=== PATIENT | female | born 1945 | race Caucasian/White ===

== ENCOUNTER → 2017-10-09 08:30 | Outpatient (CLI) | payer MEDICARE, SELFPAY | PROVIDERS: Family Provider Family Medicine; PCP Family Medicine; Visit Provider Urology | DX: R82.99 Other abnormal findings in urine (principal) | CPT/HCPCS: 87077; 87086; 87088; 87186 ==

== ENCOUNTER → 2017-10-10 12:33 | Outpatient (CLI) | payer MEDICARE, SELFPAY | PROVIDERS: Visit Provider Nurse Practitioner Adult Health | DX: R31.9 Hematuria, unspecified (principal) | CPT/HCPCS: 87077; 87086; 87088; 87186 ==

== ENCOUNTER → 2017-10-22 19:54 | Outpatient (CLI) | payer MEDICARE, SELFPAY | PROVIDERS: Family Provider Family Medicine; PCP Family Medicine; Visit Provider Nurse Practitioner Adult Health | DX: N30.21 Other chronic cystitis with hematuria (principal) | CPT/HCPCS: 87086; 87088 ==

== ENCOUNTER → 2017-11-02 14:17 | Outpatient (CLI) | payer MEDICARE, SELFPAY | LOC: LAB 14:19 → LAB.FUTURE 11-05 12:29 | PROVIDERS: Family Provider Family Medicine; PCP Family Medicine; Visit Provider Urology | DX: N30.21 Other chronic cystitis with hematuria (principal); N39.0 Urinary tract infection, site not specified ==

== ENCOUNTER → 2017-11-05 13:39 | Outpatient (CLI) | payer MEDICARE, SELFPAY | PROVIDERS: Family Provider Family Medicine; PCP Family Medicine; Visit Provider Nurse Practitioner Adult Health | DX: N30.21 Other chronic cystitis with hematuria (principal) | CPT/HCPCS: 87086; 87088 ==

== ENCOUNTER → 2017-11-05 16:33 | Outpatient (CLI) | payer MEDICARE, SELFPAY ==
[2017-11-05 17:06] LABS: Creatinine, Serum 0.78 mg/dL (0.55-1.02); EST Glomerular Filtration Rate 77 mL/min (>60); Est Glom Filt Rate - Afr Amer 93 mL/min (>60)
== END ==
PROVIDERS: Visit Provider Obstetrics & Gynecology
DX: Z79.2 Long term (current) use of antibiotics (principal); N30.21 Other chronic cystitis with hematuria; N39.0 Urinary tract infection, site not specified
CPT/HCPCS: 36415; 82565; 87086; 87088

== ENCOUNTER → 2017-11-06 13:43 | Outpatient (CLI) | payer MEDICARE, SELFPAY ==
[2017-11-06 14:28] VITALS: BP 136/80; PULSE 87; RESP 16; TEMP 37.4; O2SAT 98; BMI 33.5
== END ==
PROVIDERS: Family Provider Family Medicine; PCP Family Medicine; Visit Provider Obstetrics & Gynecology
DX: N76.0 Acute vaginitis (principal); B96.5 Pseudomonas (aeruginosa) (mallei) (pseudomallei) as the cause of diseases classified elsewhere; Z88.1 Allergy status to other antibiotic agents
CPT/HCPCS: 96365; J7050; A4216

== ENCOUNTER → 2017-11-07 13:33 | Outpatient (CLI) | payer MEDICARE, SELFPAY ==
[2017-11-07 13:49] VITALS: BP 145/72; PULSE 92; RESP 16; TEMP 37.3; O2SAT 97
[2017-11-07 14:43] LABS: Gentamicin, Conv. Trough < 0.2 ug/mL (<2.0)
== END ==
PROVIDERS: Family Provider Family Medicine; PCP Family Medicine; Visit Provider Obstetrics & Gynecology
DX: N95.2 Postmenopausal atrophic vaginitis (principal); R10.2 Pelvic and perineal pain
CPT/HCPCS: 96365; 80170; J7050; A4216

== ENCOUNTER → 2017-11-08 13:36 | Outpatient (CLI) | payer MEDICARE, SELFPAY ==
[2017-11-08 13:44] VITALS: BP 129/68; PULSE 86; RESP 16; TEMP 36.8; O2SAT 97; BMI 33.7
== END ==
PROVIDERS: Family Provider Family Medicine; PCP Family Medicine; Visit Provider Obstetrics & Gynecology
DX: N95.2 Postmenopausal atrophic vaginitis (principal); R10.2 Pelvic and perineal pain
CPT/HCPCS: 96365; J7050; A4216

== ENCOUNTER → 2017-11-09 12:55 | Outpatient (CLI) | payer MEDICARE, SELFPAY ==
[2017-11-09 13:10] VITALS: BP 131/65; PULSE 79; RESP 18; TEMP 36.8; O2SAT 98; BMI 33.7
== END ==
PROVIDERS: Family Provider Family Medicine; PCP Family Medicine; Visit Provider Obstetrics & Gynecology
DX: N95.2 Postmenopausal atrophic vaginitis (principal); R10.2 Pelvic and perineal pain
CPT/HCPCS: 96365; J7050; A4216

== ENCOUNTER 2017-11-10 13:19 | Outpatient (CLI) | payer MEDICARE, SELFPAY ==
[2017-11-10 13:39] VITALS: BP 111/52; PULSE 82; RESP 16; O2SAT 99
[2017-11-10] MEDS: 0.9% NaCl Peripheral Flush Adult/Peds IV (13:45)
== END 2017-11-10 14:25 | disposition home or self-care (01) ==
LOC: ICUOUT 13:21 → ICU 13:22
PROVIDERS: Family Provider Family Medicine; PCP Family Medicine; Visit Provider Obstetrics & Gynecology
DX: N95.2 Postmenopausal atrophic vaginitis (principal); R10.2 Pelvic and perineal pain
CPT/HCPCS: 96365; A4216

== ENCOUNTER 2017-11-19 09:28 | Emergency (ER) | payer MEDICARE, SELFPAY ==
[2017-11-19 09:30] VITALS: BP 133/56; PULSE 91; RESP 16; TEMP 36.9; O2SAT 95; BMI 33.9
--- NOTE | 2017-11-19 09:43 | US_ITS ---
STUDY: ULTRASOUND OF THE FEMALE PELVIS - COMPLETE REASON FOR EXAM: Female, 72 years old. Pain LMP: Unknown. TECHNIQUE: Transabdominal, patient refused transvaginal study TECHNICAL QUALITY: Adequate. COMPARISON: None. FINDINGS: The uterus has been removed. Neither ovary visualized. There is no fluid in the cul-de-sac. The pre void volume of the bladder was 566 ml. US/Pelvic (Non ) IMPRESSION: No suspicious sonographic findings, uterus previously removed, neither ovary visualized. Electronically Signed: Kody Pickett MD at 11:43 EDT , Service support ,
[2017-11-19 10:05] LABS: Bacteria 0 SEEN /hpf (None Seen); Mucous, Urine 0 SEEN /hpf (<or=2+); Squamous Epithelial Cells - UA 0 SEEN /hpf (5-10); White Blood Cells 0 SEEN /hpf (0-5)
[2017-11-19] MEDS: Morphine 4 MG/ML Syringe IV (10:10)
[2017-11-19] MEDS: Ondansetron 4 MG/2 ML Vial IV (10:10)
[2017-11-19 10:13] LABS: Color, Urine Straw (Yellow); Glucose, Dipstick Normal (Normal); Ketone-Dipstick Negative (Negative); Leukocyte Esterase-Dipstick Negative /ul (Negative); Nitrite-Dipstick Negative (Negative); Occult Blood-Urine 50 /ul (Negative); Protein-Dipstick Negative (Negative); Urine Bilirubin Dipstick Negative (Negative); Urine Clarity Sl. Cloudy (Clear); Urine Urobilinogen Normal (Normal); Urine pH 6.5 (5.0 - 8.0)
[2017-11-19 10:24] LABS: Red Blood Cells-Urine 0-5 SEEN /hpf (0-5)
[2017-11-19 10:25] LABS: Anion Gap 5 (5-15); BUN 14 mg/dL (7-18); BUN/Creat Ratio 17.2 RATIO (10-20); Calcium,Total 9.4 mg/dL (8.5-10.1); Chloride 103 mmol/L (98-107); Creatinine, Serum 0.82 mg/dL (0.55-1.02); EST Glomerular Filtration Rate 74 mL/min (>60); Est Glom Filt Rate - Afr Amer 89 mL/min (>60); Estimated Creatinine Clearance 55.13 ml/min; Glucose 101 mg/dL (74-106); Sodium Level 136 mmol/L (136-145)
[2017-11-19 10:27] LABS: Absolute Lymphocyte Count 1.85 X10^3/ul (0.83-4.51); Absolute Neutrophil Count 4.9 X10^3/uL (2.0-7.7); Basophil# 0.02 X10^3/uL; Basophil% 0.3 % (0-1); Eosinophil# 0.08 X10^3/uL; Eosinophils% 1.1 % (0-5); Hematocrit 44.7 % (37-47); Hemoglobin 14.8 g/dl (12.0-15.0); Lymphocyte # 1.85 X10^3/ul (4.0); Lymphocyte % 24.8 % (19-41); Mean Corp Hgb Conc 33.1 g/gl (32-36); Mean Corpuscular Hgb 31.2 pg (27.0-32.0); Mean Corpuscular Volume 94.1 fL (81-99); Mean Platelet Vol. 8.8 fl (6.2-12.0); Monocyte% 8.1 % (0-10); Neutrophil # 4.89 X10^3/uL (2.7-7.7); Neutrophil % 65.6 % (47-70); Platelet Count 289 K/mm3 (150-450); RBC Distribution Width CV 13.1 % (11.6-14.6); RBC Distribution Width SD 45.1 fl (35.1-43.9); Red Blood Count 4.75 M/mm3 (4.2-5.4); White Blood Count 7.5 K/mm3 (4.4-11.0)
[2017-11-19 10:28] LABS: POSITIVE COUNT NO; POSITIVE DIFFERENTIAL NO; POSITIVE MORPHOLOGY NO
[2017-11-19 12:03] VITALS: BP 133/67; PULSE 71; RESP 16; O2SAT 98
--- NOTE | 2017-11-19 12:06 | ED.VISSUMM ---
- ER Visit Summary Date of Service: 11/19/17 Chief Complaint: [Lower abdomen/pelvic pain] History of Present Illness: The patient is a 72 F [presents the emergency department with complaint of lower abdomen pelvic pain for about a month. Patient states that she was diagnosed with a pseudomonas infection in her vagina around October 29 and was on gentamicin IV for about 5 days. Patient states that she felt improved after the initial treatment but then the discomfort started to return and she has been very uncomfortable over the last week. Patient denies any vaginal discharge. Patient states her urine has been clear and she has no dysuria, urgency, or frequency. Patient has not had any fever. Patient was seen by Dr. Fam about a week ago for the same complaint. Patient has had prior hysterectomy but still has her ovaries. Patient has had several CAT scans of her abdomen and pelvis for this discomfort and no etiology has been found. Past medical history significant for recurring bladder infections.] Physical Examination: [HEENT-PERRLA, EOMI. Cranial nerves II through XII grossly intact. TMs clear. Mucous membranes moist. No adenopathy. Cardiovascular-regular rate and rhythm without murmur or ectopy Lungs-clear to auscultation, chest wall stable without crepitus or subcu emphysema Abdomen-normoactive bowel sounds, soft. Patient has some mild suprapubic tenderness on palpation. There is no rebound, rigidity, or perineal signs. Pelvic exam-normal external genitalia. Upon inserting the speculum into the vagina patient had significant discomfort and had a difficult time tolerating the exam. No significant drainage noted in the vaginal vault. A vaginal culture was sent and MICAH prep was sent. Extremities-intact ?4, normal range of motion, normal pulses, atraumatic] Test Results: [CBC with differential obtained showed a normal white count and H&H. Chemistries unremarkable. Urinalysis was normal. MICAH prep was negative for fungal elements. I did perform a pelvic ultrasound which did not visualize the ovaries and nothing significant seen on study.] Emergency Department Course and Treatment: [Patient was medicated with morphine and Zofran for her pain. Case will be discussed with Dr. Fam or MARKETING BUDGET ANALYST covering to arrange close follow-up for the patient.] Treatment Plan: [Patient will be given a prescription for [place] for pain.] Disposition: [Discharged home in stable condition.] Impression: [Pelvic pain-etiology uncertain] This note was generated with [employer] dictation software. It may contain incorrect words, spelling, and punctuation that were not noted in review of the chart prior to signing ED Disposition - Plan for ED Patient: Chief Complaint: Female C/O Referrals: Hawk Carbone MD [Primary Care Provider] -
--- NOTE | 2017-11-19 12:09 | ED.DCSUM_ITS ---
- ER Visit Summary Date of Service: 11/19/17 Chief Complaint: [Lower abdomen/pelvic pain] History of Present Illness: The patient is a 72 F [presents the emergency department with complaint of lower abdomen pelvic pain for about a month. Patient states that she was diagnosed with a pseudomonas infection in her vagina around October 29 and was on gentamicin IV for about 5 days. Patient states that she felt improved after the initial treatment but then the discomfort started to return and she has been very uncomfortable over the last week. Patient denies any vaginal discharge. Patient states her urine has been clear and she has no dysuria, urgency, or frequency. Patient has not had any fever. Patient was seen by Dr. Fam about a week ago for the same complaint. Patient has had prior hysterectomy but still has her ovaries. Patient has had several CAT scans of her abdomen and pelvis for this discomfort and no etiology has been found. Past medical history significant for recurring bladder infections.] Physical Examination: [HEENT-PERRLA, EOMI. Cranial nerves II through XII grossly intact. TMs clear. Mucous membranes moist. No adenopathy. Cardiovascular-regular rate and rhythm without murmur or ectopy Lungs-clear to auscultation, chest wall stable without crepitus or subcu emphysema Abdomen-normoactive bowel sounds, soft. Patient has some mild suprapubic tenderness on palpation. There is no rebound, rigidity, or perineal signs. Pelvic exam-normal external genitalia. Upon inserting the speculum into the vagina patient had significant discomfort and had a difficult time tolerating the exam. No significant drainage noted in the vaginal vault. A vaginal culture was sent and MICAH prep was sent. Extremities-intact ?4, normal range of motion, normal pulses, atraumatic] Test Results: [CBC with differential obtained showed a normal white count and H& H. Chemistries unremarkable. Urinalysis was normal. MICAH prep was negative for fungal elements. I did perform a pelvic ultrasound which did not visualize the ovaries and nothing significant seen on study.] Emergency Department Course and Treatment: [Patient was medicated with morphine and Zofran for her pain. Case will be discussed with Dr. Fam or PARACHUTE OFFICER covering to arrange close follow-up for the patient.] Treatment Plan: [Patient will be given a prescription for [place] for pain.] Disposition: [Discharged home in stable condition.] Impression: [Pelvic pain-etiology uncertain] This note was generated with [employer] dictation software. It may contain incorrect words, spelling, and punctuation that were not noted in review of the chart prior to signing ED Disposition - Plan for ED Patient: Chief Complaint: Female C/O Referrals: Hawk Carbone MD [Primary Care Provider] -
--- NOTE | 2017-11-19 12:10 | ED.DEP ---
ED Disposition - Plan for ED Patient: Chief Complaint: Female C/O Instructions: ED Pelvic Pain [facility] Prescriptions: Hydrocodone Bitart/Apap 5-325 [[place] 5/325] 1 - 2 tab PO Q4H PRN PRN 5 Days #20 tab PRN Reason: Pain Referrals: Hawk Carbone MD [Primary Care Provider] - Myke Fam MD [STAFF PHYSICIAN] - Murali Dee MD [STAFF PHYSICIAN] - 3-5 Days
--- NOTE | 2017-11-19 12:14 | DCINST.ED_ITS ---
ED Disposition - Plan for ED Patient: Chief Complaint: Female C/O Instructions: ED Pelvic Pain [facility] Prescriptions: Hydrocodone Bitart/Apap 5-325 [[place] 5/325] 1 - 2 tab PO Q4H PRN PRN 5 Days #20 tab PRN Reason: Pain Referrals: Hawk Carbone MD [Primary Care Provider] - Myke Fam MD [STAFF PHYSICIAN] - Murali Dee MD [STAFF PHYSICIAN] - 3-5 Days
[2017-11-19 12:25] VITALS: BP 153/88; PULSE 74; RESP 14; O2SAT 98
== END 2017-11-19 12:25 | disposition home or self-care (01) ==
PROVIDERS: Emergency Provider Emergency Medicine; Family Provider Family Medicine; PCP Family Medicine
DX: R10.2 Pelvic and perineal pain (principal); Z87.440 Personal history of urinary (tract) infections; Z79.82 Long term (current) use of aspirin; Z79.891 Long term (current) use of opiate analgesic
CPT/HCPCS: 76856; 80048; 81001; 85025; 87070; 87075; 87086; 87088; 87205; 87210; 96374; 96375; 99283; A4216

== ENCOUNTER 2017-11-25 09:53 | Emergency (ER) | payer MEDICARE, SELFPAY ==
[2017-11-25 09:53] VITALS: BP 134/65; PULSE 89; RESP 18; TEMP 37.2; O2SAT 98; BMI 33.7
--- NOTE | 2017-11-25 10:12 | ED.VISSUMM ---
- ER Visit Summary Date of Service: 11/25/17 Chief Complaint: Pelvic pain History of Present Illness: The patient is a 72 F presents the emergency department with complaint of lower abdomen pelvic pain for about a month. She tells me that she was diagnosed with a pseudomonas infection in her vagina earlier in October and that she was on IV gentamicin for [address] Fam.. Patient states that she felt better after the IV antibiotics but then the pain returned. Patient denies any vaginal discharge. Patient states has had no dysuria, but she has burning in her pelvic area when she urinates. No hematuria. Patient has not had any fever. Patient has had prior hysterectomy but still has her ovaries. Patient had a CAT scan as an outpatient as well as an ultrasound in the ER earlier this week without any etiology found. She had a urinalysis done on November 19 that showed no infection. Her culture just showed normal urogenital fernanda. She has had UTIs in the past. Physical Examination: Vital signs reviewed. HEENT exam unremarkable. Heart is regular rate and rhythm without murmurs. Lungs are clear to auscultation. Abdomen is soft with suprapubic tenderness to palpation. Extremities reveal no edema. Skin exam normal. Neurologic exam normal. Test Results: [] Emergency Department Course and Treatment: The patient has a copy of her labs and she is concerned because the culture reveals gram-negative rods as well as gram-positive organisms and the culture. She is afraid that this is Pseudomonas. I informed her that the gram-negative rods could be other organisms not necessarily Pseudomonas. CBC unremarkable. Urinalysis reveals no infection. I have very low suspicion that she does have a recurrence of the Pseudomonas. I will try a B&O suppository to see if this will help with her symptoms. She does have follow-up with urology in 2 days. She will keep this appointment. I will send her home with the suppositories and Dolobid. Treatment Plan: [] Disposition: Discharge Impression: Pelvic pain This note was generated with [employer] dictation software. It may contain incorrect words, spelling, and punctuation that were not noted in review of the chart prior to signing ED Disposition - Plan for ED Patient: Chief Complaint: Abd Pain Referrals: Hawk Carbone MD [Primary Care Provider] -
[2017-11-25 10:21] LABS: Bacteria 0 SEEN /hpf (None Seen); Mucous, Urine 0 SEEN /hpf (<or=2+); Red Blood Cells-Urine 0 SEEN /hpf (0-5)
[2017-11-25 10:23] LABS: Color, Urine Straw (Yellow); Glucose, Dipstick Normal (Normal); Ketone-Dipstick Negative (Negative); Leukocyte Esterase-Dipstick 500 /ul (Negative); Nitrite-Dipstick Negative (Negative); Occult Blood-Urine 50 /ul (Negative); Protein-Dipstick Negative (Negative); Specific Gravity, Urine 1.005 (1.002-1.030); Urine Bilirubin Dipstick Negative (Negative); Urine Clarity Clear (Clear); Urine Urobilinogen Normal (Normal)
[2017-11-25 10:34] LABS: Squamous Epithelial Cells - UA 0-5 SEEN /hpf (5-10); White Blood Cells 0-5 SEEN /hpf (0-5)
[2017-11-25 10:41] LABS: Absolute Neutrophil Count 4.1 X10^3/uL (2.0-7.7); Basophil# 0.02 X10^3/uL; Basophil% 0.3 % (0-1); Eosinophil# 0.12 X10^3/uL; Eosinophils% 1.7 % (0-5); Hematocrit 43.7 % (37-47); Hemoglobin 14.3 g/dl (12.0-15.0); Lymphocyte % 31.9 % (19-41); Mean Corp Hgb Conc 32.7 g/gl (32-36); Mean Corpuscular Hgb 30.6 pg (27.0-32.0); Mean Corpuscular Volume 93.6 fL (81-99); Mean Platelet Vol. 8.8 fl (6.2-12.0); Monocyte# 0.47 X10^3/uL; Monocyte% 6.8 % (0-10); Neutrophil # 4.07 X10^3/uL (2.7-7.7); Neutrophil % 59.2 % (47-70); POSITIVE COUNT NO; POSITIVE DIFFERENTIAL NO; POSITIVE MORPHOLOGY NO; Platelet Count 272 K/mm3 (150-450); RBC Distribution Width CV 13.1 % (11.6-14.6); RBC Distribution Width SD 44.7 fl (35.1-43.9); Red Blood Count 4.67 M/mm3 (4.2-5.4); White Blood Count 6.9 K/mm3 (4.4-11.0)
--- NOTE | 2017-11-25 11:21 | ED.DEP ---
ED Disposition - Plan for ED Patient: Disposition: Home or Assisted Living Chief Complaint: Abd Pain Instructions: ED Pelvic Pain [facility] Referrals: Hawk Carbone MD [Primary Care Provider] -
[2017-11-25 11:55] VITALS: BP 138/72; PULSE 71; RESP 18; O2SAT 98
== END 2017-11-25 12:01 | disposition home or self-care (01) ==
PROVIDERS: Emergency Provider Emergency Medicine; Family Provider Family Medicine; PCP Family Medicine
DX: R10.2 Pelvic and perineal pain (principal); Z87.440 Personal history of urinary (tract) infections; Z79.82 Long term (current) use of aspirin; Z79.2 Long term (current) use of antibiotics
CPT/HCPCS: 36415; 81001; 85025; 99282

== ENCOUNTER → 2017-11-29 18:21 | Outpatient (CLI) | payer MEDICARE, SELFPAY | PROVIDERS: Visit Provider Urology | DX: R31.9 Hematuria, unspecified (principal) | CPT/HCPCS: 87086; 87088 ==

== ENCOUNTER → 2017-12-20 16:09 | Outpatient (CLI) | payer MEDICARE, SELFPAY ==
[2017-12-20 16:47] LABS: Bacteria 0 SEEN /hpf (None Seen); Mucous, Urine 0 SEEN /hpf (<or=2+); Red Blood Cells-Urine 0 SEEN /hpf (0-5)
[2017-12-20 17:08] LABS: Color, Urine Yellow (Yellow); Glucose, Dipstick Normal (Normal); Ketone-Dipstick Negative (Negative); Leukocyte Esterase-Dipstick 25 /ul (Negative); Nitrite-Dipstick Negative (Negative); Occult Blood-Urine 50 /ul (Negative); Protein-Dipstick Negative (Negative); Urine Bilirubin Dipstick Negative (Negative); Urine Clarity Clear (Clear); Urine Urobilinogen Normal (Normal); Urine pH 6.5 (5.0 - 8.0)
[2017-12-20 17:46] LABS: Squamous Epithelial Cells - UA 0-5 SEEN /hpf (5-10); White Blood Cells 0-5 SEEN /hpf (0-5)
== END ==
PROVIDERS: Family Provider Family Medicine; PCP Family Medicine; Visit Provider Obstetrics & Gynecology
DX: N39.0 Urinary tract infection, site not specified (principal)
CPT/HCPCS: 81001; 87086; 87088

== ENCOUNTER 2018-08-03 08:50 | Emergency (ER) | payer MEDICARE, SELFPAY ==
[2018-08-03 08:51] VITALS: BP 119/64; PULSE 91; RESP 16; TEMP 36.5; O2SAT 97; BMI 34.3
[2018-08-03 08:54] VITALS: BP 119/64; PULSE 91; RESP 16; TEMP 36.5; O2SAT 97
--- NOTE | 2018-08-03 09:01 | ED.VISSUMM ---
- ER Visit Summary Date of Service: 08/03/18 Chief Complaint: Dysuria History of Present Illness: The patient is a 73 F dysuria since yesterday. May have noted pus in the urine. No back pain. No fevers. No nausea or vomiting. History of UTIs in the past. However is been a year now. She is followed by urogynecology in [place] Dr. Radhika Fortune for pelvic myalgias Botox injections. Her last treatment was past June. Patient on nighttime daily Macrobid for prevention. History of hysterectomy. Physical Examination: General: Alert and oriented ?3, no acute distress HEENT: Normocephalic, atraumatic. Moist mucosa membranes Neck: supple, nontender. Cardiovascular: Regular rate and rhythm, no murmurs Respiratory: Normal breath sounds, symmetric, no distress Abdomen: Soft, nontender, nondistended Back: No CVA tenderness. Extremities: Nontender, no edema, pulses intact ?4 Neuro: no focal neurological deficits. Test Results: UA: Positive nitrites, leukocytes, WBCs, mild hematuria. Urine culture sent pending Emergency Department Course and Treatment: Patient vitals stable, nontoxic. UA positive for infection. Started on Keflex 7 days, Pyridium. Follow-up as an outpatient. Treatment Plan: [] Disposition: Discharge Impression: 1. UTI with hematuria This note was generated with [employer] dictation software. It may contain incorrect words, spelling, and punctuation that were not noted in review of the chart prior to signing ED Disposition - Plan for ED Patient: Disposition: Home or Assisted Living Chief Complaint: Complaint Diagnosis: UTI (urinary tract infection), Hematuria Instructions: ED UTI Cystitis Female Prescriptions: Cephalexin [Keflex] 500 mg PO Q12 #14 capsule Phenazopyridine HCl [Pyridium] 200 mg PO TID #10 tablet Referrals: Hawk Carbone MD [Primary Care Provider] - Radhika Fortune MD [STAFF PHYSICIAN] - 5-7 Days Additional Instructions: Positive for nitrites, leukocytes, WBCs with mild blood. Urine culture sent and pending
[2018-08-03 09:21] LABS: Mucous, Urine 0 SEEN /hpf (<or=2+)
[2018-08-03 09:25] LABS: Color, Urine Yellow (Yellow); Glucose, Dipstick Normal (Normal); Ketone-Dipstick Negative (Negative); Leukocyte Esterase-Dipstick 500 /ul (Negative); Nitrite-Dipstick Positive (Negative); Occult Blood-Urine 150 /ul (Negative); Protein-Dipstick 15 mg/dl (Negative); Specific Gravity, Urine 1.005 (1.002-1.030); Urine Bilirubin Dipstick Negative (Negative); Urine Clarity Cloudy (Clear); Urine Urobilinogen Normal (Normal)
[2018-08-03 09:35] LABS: White Blood Cells 50-100 SEEN /hpf (0-5)
[2018-08-03 09:36] LABS: Bacteria 3+ /hpf (None Seen); Red Blood Cells-Urine 5-10 SEEN /hpf (0-5); Squamous Epithelial Cells - UA 0-5 SEEN /hpf (5-10)
[2018-08-03 09:51] VITALS: BP 143/84; PULSE 68; RESP 19; O2SAT 95
[2018-08-03 09:59] VITALS: BP 148/76; PULSE 72; RESP 16; O2SAT 95
[2018-08-03] MEDS: Phenazopyridine 95 MG Tablet 190 MG PO (10:07)
[2018-08-03] MEDS: Cephalexin 250 MG Capsule 500 MG PO (10:07)
== END 2018-08-03 10:20 | disposition home or self-care (01) ==
PROVIDERS: Emergency Provider Emergency Medicine; Family Provider Family Medicine; PCP Family Medicine
DX: N39.0 Urinary tract infection, site not specified (principal); R31.9 Hematuria, unspecified; Z87.440 Personal history of urinary (tract) infections
CPT/HCPCS: 81001; 87077; 87086; 87088; 87186; 99283

== ENCOUNTER 2018-10-14 10:34 | Observation (INO) | payer MEDICARE, SELFPAY ==
[2018-10-14] VITALS (8 sets, daily range): BP systolic 137–172; BP diastolic 56–87; PULSE 70–99; RESP 14–17; TEMP 36.3–37.2; O2SAT 96–99; BMI 34.6; BMI 34.4
--- NOTE | 2018-10-14 10:48 | RAD_ITS ---
STUDY: X-RAY CHEST REASON FOR EXAM: Female, 73 years old. Chest pain. TECHNIQUE: Single AP portable view of the chest. COMPARISON: None. FINDINGS: EKG electrodes are seen. Elevation of the right hemidiaphragm. Scattered calcified granulomas. Normal size heart. Normal mediastinum and epi. Normal visualized pulmonary arteries. Normal visualized aortic arch and descending thoracic aorta. Normal visualized thoracic spine. Normal visualized ribs, clavicles, and shoulders. There is no demonstrated abnormality of the visualized soft tissue structures of the upper abdomen. RAD/Chest 1 View (Portable) IMPRESSION: No acute abnormality is seen. Electronically Signed: Aramis Montes, at 11:30 EDT , Service support ,
--- NOTE | 2018-10-14 10:48 | EKG12_ITS ---
Test Reason : CP/PALPS Blood Pressure : / mmHG Vent. Rate : 085 BPM Atrial Rate : 085 BPM P-R Int : 146 ms QRS Dur : 082 ms QT Int : 356 ms P-R-T Axes : 046 -37 001 degrees QTc Int : 423 ms Normal sinus rhythm Left axis deviation Poor R-Wave Progression Abnormal ECG Confirmed by YENNY LUZ, NAIMA ([id number]), assignment desk editor GHAZALA LAIRD ([id number]) on 10/16/2018 1:46:12 PM Referred By: MARISEL Confirmed By:NAIMA RAMON MD
[2018-10-14 11:10] LABS: Absolute Lymphocyte Count 1.94 X10^3/ul (0.83-4.51); Absolute Neutrophil Count 4.5 X10^3/uL (2.0-7.7); Basophil# 0.06 X10^3/uL; Basophil% 0.8 % (0-1); Eosinophil# 0.08 X10^3/uL; Eosinophils% 1.1 % (0-5); Hematocrit 45.6 % (37-47); Hemoglobin 14.5 g/dl (12.0-15.0); Lymphocyte # 1.94 X10^3/ul (4.0); Lymphocyte % 27.1 % (19-41); Mean Corp Hgb Conc 31.8 g/gl (32-36); Mean Corpuscular Volume 94.2 fL (81-99); Mean Platelet Vol. 9.1 fl (6.2-12.0); Monocyte# 0.57 X10^3/uL; Neutrophil % 62.9 % (47-70); Platelet Count 302 K/mm3 (150-450); RBC Distribution Width CV 13.6 % (11.6-14.6); RBC Distribution Width SD 45.3 fl (35.1-43.9); Red Blood Count 4.84 M/mm3 (4.2-5.4); White Blood Count 7.2 K/mm3 (4.4-11.0)
[2018-10-14 11:12] LABS: POSITIVE COUNT NO; POSITIVE DIFFERENTIAL NO; POSITIVE MORPHOLOGY NO
[2018-10-14 11:26] LABS: Anion Gap 2 (5-15); BUN 15 mg/dL (7-18); BUN/Creat Ratio 19.2 RATIO (10-20); Calcium,Total 9.3 mg/dL (8.5-10.1); Chloride 107 mmol/L (98-107); Creatinine, Serum 0.78 mg/dL (0.55-1.02); EST Glomerular Filtration Rate 77 mL/min (>60); Est Glom Filt Rate - Afr Amer 93 mL/min (>60); Estimated Creatinine Clearance 44.56 ml/min; Glucose 106 mg/dL (74-106); Potassium 3.9 mmol/L (3.5-5.1); Sodium Level 138 mmol/L (136-145)
--- NOTE | 2018-10-14 11:40 | ED.VIS.GEN ---
History of Present Illness Chief Complaint: Chest Pain Informant: Patient Narrative: Patient with vague intermittent symptoms of racing heartbeat since around 7 or 8 hours ago this morning intermittently, chest discomfort off and on for a week that is difficult to describe it feels like someone pushing, and mild discomfort in her left upper back that is nonpleuritic and feels like a muscle strain. No leg pain or swelling. No recent travel, immobilization, hospitalization, or surgery. No known history of heart problems. No associated lightheadedness or near syncope/syncope. - Past Medical History (1) Recurrent cystitis Status: Chronic Past Medical History - Allergies and Home Meds Allergies/Adverse Reactions: Allergies chlordiazepoxide [From Librax (with clidinium)] Allergy (Verified 10/14/18 10:36) Unknown ciprofloxacin [From Cipro] Allergy (Verified 10/14/18 10:36) Nausea/Vom/Diarrhea clidinium [From Librax (with clidinium)] Allergy (Verified 10/14/18 10:36) Unknown codeine Allergy (Verified 10/14/18 10:36) Unknown dicyclomine [From Bentyl] Allergy (Verified 10/14/18 10:36) Unknown nickel Allergy (Verified 10/14/18 10:36) Unknown gluten Adverse Reaction (Verified 10/14/18 10:36) Nausea/Vom/Diarrhea levofloxacin [From Levaquin] Adverse Reaction (Verified 10/14/18 10:36) Nausea/Vom/Diarrhea sulfamethoxazole [From Bactrim] Adverse Reaction (Verified 10/14/18 10:36) Nausea/Vom/Diarrhea Primary Care Physician: Hawk Carbone MD [Primary Care Provider] - Lives: Spouse/ Significant Other Smoking Status: Never smoker Review of Systems General: Reports: Malaise. Denies: Chills, Fever, Sweats Eyes: Denies: Visual changes - bilaterally, Diplopia ENT: Denies: Rhinorrhea, Sore throat Cardiovascular: Reports: Chest pain, Heart racing Respiratory: Denies: Dyspnea, Cough Gastrointestinal: Denies: Abdominal pain, Nausea, Vomiting, Diarrhea, Melena, Hematochezia Genitourinary: Denies: Dysuria, Hematuria, Frequency Musculoskeletal: Reports: Back pain. Denies: Swelling, Extremity Pain Skin: Denies: Rash, Wounds Neurological: Denies: Headache, Weakness, Numbness Physical Exam Vital Signs/Narrative: Vital Signs Temp Pulse Resp BP Pulse Ox 10/14/18 11:34 88 17 137/78 H 98 10/14/18 10:36 97.4 F L 99 16 148/56 H 99 Inital Vital Signs reviewed: Yes General: Well nourished, Well developed, No Acute Distress - well-appearing, nad Head: Normocephalic, Atraumatic Eyes: Perrl, EOMI ENT: Moist mucous membranes, No rhinorrhea Neck: Supple, Nontender Cardiovascular: Regular rate, Regular rhythm, No murmurs Respiratory: No distress, CTA bilaterally, Chest nontender Abdomen: Soft, Nontender, Nondistended, Normal bowel sounds Back: Nontender, Normal Inspection Extremities: Nontender, No edema. Negative for: Calf Tenderness Skin: Normal color, No rash, No Trauma Neurological: Alert, Oriented x3, Cranial nerves II-XII grossly intact, Normal Strength, Normal Sensation Psychological: Normal affect, Normal Mood Diagnostic/Tx/Re-eval Impressions Chest X-Ray 10/14/18 10:48 IMPRESSION: No acute abnormality is seen. Electronically Signed: Aramis Montes, at 11:30 EDT , Service support , Chest CTA 10/14/18 12:25 IMPRESSION: Pulmonary emboli in the left upper lobe pulmonary arterial branches. Findings suggestive of interstitial scarring at the lung bases. Left renal cyst. Electronically Signed: Aramis Montes, at 13:48 EDT , Service support , 10/14/18 10:48 Chest 1 View (Portable) [RAD] Stat 10/14/18 12:25 CTA Chest W/WO Contrast [CT] Stat Laboratory Results 10/14/18 10/14/18 10/14/18 10:58 10:58 10:58 WBC 7.2 RBC 4.84 Hgb 14.5 Hct 45.6 MCV 94.2 MCH 30.0 MCHC 31.8 L RDW 13.6 RDW Differential 45.3 H Plt Count 302 MPV 9.1 Immature Gran % (Auto) 0.100 Neut % (Auto) 62.9 Lymph % (Auto) 27.1 [place] % (Auto) 8.0 Eos % (Auto) 1.1 Baso % (Auto) 0.8 Absolute Neuts (auto) 4.5 Absolute Lymphs (auto) 1.94 Total Counted Not Reportable D-Dimer Quant (PE/DVT) 2.34 H* Sodium 138 Potassium 3.9 Chloride 107 Carbon Dioxide 29.0 Anion Gap 2 L BUN 15 Creatinine 0.78 Estim Creat Clear Calc 44.56 Est GFR (MDRD) Af Amer 93 Est GFR (MDRD) Non-Af 77 BUN/Creatinine Ratio 19.2 Glucose 106 Calcium 9.3 Troponin I < 0.015 - Rhythm Strip Rhythm Strip: Sinus Rhythm Rate: 85 Ectopy: None - EKG Initial EKG Interpretation: Sinus Rhythm, No Acute Injury Pattern, - - left axis Prior: Unchanged - Medical Decision Making Patient is remained hemodynamically stable, she has had no recurrence of her palpitations or racing heartbeat, however she has been resting in bed the entire time to. She came in and her heart rate was 99, it has not gone higher than that. CT shows pulmonary emboli in the left upper lobe, which is probably related to her left upper back pain. However, she is also having some central chest discomfort that sounds different. Her blood pressure has remained stable and is actually high. Lovenox ordered, I have discussed with hospitalist to evaluate for possible admission. ED Disposition - Plan for ED Patient: Disposition: Acute Care Hospital [facility] Diagnosis: Chest pain, unspecified, Pulmonary embolism, Palpitations Referrals: Hawk Carbone MD [Primary Care Provider] -
[2018-10-14 11:44] LABS: D-Dimer Quantitative (DVT/PE) 2.34 FEU/ug/m (0.27-0.49)
--- NOTE | 2018-10-14 11:44 | ED.DCSUM_ITS ---
History of Present Illness Chief Complaint: Chest Pain Informant: Patient Narrative: Patient with vague intermittent symptoms of racing heartbeat since around 7 or 8 hours ago this morning intermittently, chest discomfort off and on for a week that is difficult to describe it feels like someone pushing, and mild discomfort in her left upper back that is nonpleuritic and feels like a muscle strain. No leg pain or swelling. No recent travel, immobilization, hospitalization, or surgery. No known history of heart problems. No associated lightheadedness or near syncope/syncope. - Past Medical History (1) Recurrent cystitis Status: Chronic Past Medical History - Allergies and Home Meds Allergies/Adverse Reactions: Allergies chlordiazepoxide [From Librax (with clidinium)] Allergy (Verified 10/14/18 10:36) Unknown ciprofloxacin [From Cipro] Allergy (Verified 10/14/18 10:36) Nausea/Vom/Diarrhea clidinium [From Librax (with clidinium)] Allergy (Verified 10/14/18 10:36) Unknown codeine Allergy (Verified 10/14/18 10:36) Unknown dicyclomine [From Bentyl] Allergy (Verified 10/14/18 10:36) Unknown nickel Allergy (Verified 10/14/18 10:36) Unknown gluten Adverse Reaction (Verified 10/14/18 10:36) Nausea/Vom/Diarrhea levofloxacin [From Levaquin] Adverse Reaction (Verified 10/14/18 10:36) Nausea/Vom/Diarrhea sulfamethoxazole [From Bactrim] Adverse Reaction (Verified 10/14/18 10:36) Nausea/Vom/Diarrhea Primary Care Physician: Hawk Carbone MD [Primary Care Provider] - Lives: Spouse/ Significant Other Smoking Status: Never smoker Review of Systems General: Reports: Malaise. Denies: Chills, Fever, Sweats Eyes: Denies: Visual changes - bilaterally, Diplopia ENT: Denies: Rhinorrhea, Sore throat Cardiovascular: Reports: Chest pain, Heart racing Respiratory: Denies: Dyspnea, Cough Gastrointestinal: Denies: Abdominal pain, Nausea, Vomiting, Diarrhea, Melena, Hematochezia Genitourinary: Denies: Dysuria, Hematuria, Frequency Musculoskeletal: Reports: Back pain. Denies: Swelling, Extremity Pain Skin: Denies: Rash, Wounds Neurological: Denies: Headache, Weakness, Numbness Physical Exam Vital Signs/Narrative: Vital Signs Temp Pulse Resp BP Pulse Ox 10/14/18 11:34 88 17 137/78 H 98 10/14/18 10:36 97.4 F L 99 16 148/56 H 99 Inital Vital Signs reviewed: Yes General: Well nourished, Well developed, No Acute Distress - well-appearing, nad Head: Normocephalic, Atraumatic Eyes: Perrl, EOMI ENT: Moist mucous membranes, No rhinorrhea Neck: Supple, Nontender Cardiovascular: Regular rate, Regular rhythm, No murmurs Respiratory: No distress, CTA bilaterally, Chest nontender Abdomen: Soft, Nontender, Nondistended, Normal bowel sounds Back: Nontender, Normal Inspection Extremities: Nontender, No edema. Negative for: Calf Tenderness Skin: Normal color, No rash, No Trauma Neurological: Alert, Oriented x3, Cranial nerves II-XII grossly intact, Normal Strength, Normal Sensation Psychological: Normal affect, Normal Mood Diagnostic/Tx/Re-eval Impressions Chest X-Ray 10/14/18 10:48 IMPRESSION: No acute abnormality is seen. Electronically Signed: Aramis Montes, at 11:30 EDT , Service support , Chest CTA 10/14/18 12:25 IMPRESSION: Pulmonary emboli in the left upper lobe pulmonary arterial branches. Findings suggestive of interstitial scarring at the lung bases. Left renal cyst. Electronically Signed: Aramis Montes, at 13:48 EDT , Service support , 10/14/18 10:48 Chest 1 View (Portable) [RAD] Stat 10/14/18 12:25 CTA Chest W/WO Contrast [CT] Stat Laboratory Results 10/14/18 10/14/18 10/14/18 10:58 10:58 10:58 WBC 7.2 RBC 4.84 Hgb 14.5 Hct 45.6 MCV 94.2 MCH 30.0 MCHC 31.8 L RDW 13.6 RDW Differential 45.3 H Plt Count 302 MPV 9.1 Immature Gran % (Auto) 0.100 Neut % (Auto) 62.9 Lymph % (Auto) 27.1 [place] % (Auto) 8.0 Eos % (Auto) 1.1 Baso % (Auto) 0.8 Absolute Neuts (auto) 4.5 Absolute Lymphs (auto) 1.94 Total Counted Not Reportable D-Dimer Quant (PE/DVT) 2.34 H* Sodium 138 Potassium 3.9 Chloride 107 Carbon Dioxide 29.0 Anion Gap 2 L BUN 15 Creatinine 0.78 Estim Creat Clear Calc 44.56 Est GFR (MDRD) Af Amer 93 Est GFR (MDRD) Non-Af 77 BUN/Creatinine Ratio 19.2 Glucose 106 Calcium 9.3 Troponin I < 0.015 - Rhythm Strip Rhythm Strip: Sinus Rhythm Rate: 85 Ectopy: None - EKG Initial EKG Interpretation: Sinus Rhythm, No Acute Injury Pattern, - - left axis Prior: Unchanged - Medical Decision Making Patient is remained hemodynamically stable, she has had no recurrence of her palpitations or racing heartbeat, however she has been resting in bed the entire time to. She came in and her heart rate was 99, it has not gone higher than that. CT shows pulmonary emboli in the left upper lobe, which is probably related to her left upper back pain. However, she is also having some central chest discomfort that sounds different. Her blood pressure has remained stable and is actually high. Lovenox ordered, I have discussed with hospitalist to evaluate for possible admission. ED Disposition - Plan for ED Patient: Disposition: Acute Care Hospital [facility] Diagnosis: Chest pain, unspecified, Pulmonary embolism, Palpitations Referrals: Hawk Carbone MD [Primary Care Provider] -
--- NOTE | 2018-10-14 11:45 | ED.RN ---
LAB CALL WITH CRITICAL VALUE D-DIMER 2.34. VERBALLY REPORTED TO DR. ORTEGA AND DOREEN GOODSON.
--- NOTE | 2018-10-14 12:25 | CT_ITS ---
STUDY: CTA CHEST REASON FOR EXAM: Female, 73 years old. Chest pain and back pain. Palpitations. Elevated d-dimer levels. RADIATION DOSAGE (If Supplied By Facility): CTDIvol = ( 11.55 ) mGy, DLP = ( 477.23 ) mGycm TECHNIQUE: The examination was performed with the intravenous administration of Isovue 370 100 IV. Post-processing of the angiographic images was performed, with multiplanar reformation and 3D reconstruction. Individualized dose optimization techniques were used for this CT. COMPARISON: None. FINDINGS: Small bilateral axillary lymph nodes. Nonocclusive intraluminal filling defects are seen in the left upper lobe pulmonary arterial branches in keeping with pulmonary emboli. Normal thoracic aorta and visualized great vessels. There is no demonstrated aortic dissection. Normal heart and pericardium. Normal mediastinum. Normal hilar regions. Normal visualized trachea and bronchi. The lungs are well expanded. Increased interstitial markings with areas of confluence and cystic changes in the lower lobes in keeping with a chronic interstitial fibrosis. Normal pleura. Normal chest wall structures. There are degenerative changes of thoracic spine. There is a 3.2 cm x 7.3 cm lobulated cyst in the mid upper aspect of the left kidney. CT/CTA Chest W/WO Contrast IMPRESSION: Pulmonary emboli in the left upper lobe pulmonary arterial branches. Findings suggestive of interstitial scarring at the lung bases. Left renal cyst. Electronically Signed: Aramis Montes, at 13:48 EDT , Service support ,
[2018-10-14] MEDS: Mag Hydrox/Al Hydrox/Simeth 30 ML UDC PO (12:26)
[2018-10-14] MEDS: Enoxaparin 100 MG/ML Syringe 90 MG SC (14:49)
--- NOTE | 2018-10-14 15:10 | CASEMGMT ---
RN CM Assessment Introduced role of RN CM to patient and Jun at bedside.? Patient is alert, oriented and able?to participate in RN CM Assessment. ?Care providers, pharmacy, and demographics verified. Presentation: CP Admit Dx: PE Re-Admit: No Barriers/Issues: None PCP: Hawk Carbone Specialists: Uro/Infusion Nurse- Dr Fortune in [place], Uro- Dr Dee Preferred Pharmacy: [facility] Insurance: [facility] Benefit: ?Yes ?LNOK: Jun Fair LW/HPOA: Yes Both, HPOA Jun Fair. Not on file at [facility]. Living Arrangements:? Lives with in a SS Home, no steps to enter. ADL?s: Independent with ambulation and ADL's Transportation: Patient drives, DC with Jun DME: None HHC: None SNF: None Goal: Home DC PLAN: Home with no anticipated needs identified. Marianna Bennett RNCM
--- NOTE | 2018-10-14 15:23 | PCM.HP.STD ---
Problem List (1) Pulmonary embolism Status: Acute (2) Recurrent cystitis Status: Chronic History of Present Illness Date of Admission: 10/14/18 Chief Complaint: racing heart The patient is a 73 year old F with pmhx of frequent UTIs who presented to the ER with c/o heart racing and intermittent chest discomfort radiating in to the back. She is not SOB. D dimer was elevated in the ER. CTA was obtained which demonstrated pulmonary emboli in the GEOFF. In the ER she is comfortable in bed NAD. She neither hypoxic nor tachycardic. She has no CP. She is anxious. She has not had a blood clot in the past. No LE edema. She has no family hx of blood clots. No recent long travel, injury, or surgery. No hormone use. [] Past Medical History Past Medical History (Chronic Problems): Chronic Problems Recurrent cystitis (Chronic) Allergies chlordiazepoxide [From Librax (with clidinium)] Allergy (Verified 10/14/18 10:36) Unknown ciprofloxacin [From Cipro] Allergy (Verified 10/14/18 10:36) Nausea/Vom/Diarrhea clidinium [From Librax (with clidinium)] Allergy (Verified 10/14/18 10:36) Unknown codeine Allergy (Verified 10/14/18 10:36) Unknown dicyclomine [From Bentyl] Allergy (Verified 10/14/18 10:36) Unknown nickel Allergy (Verified 10/14/18 10:36) Unknown gluten Adverse Reaction (Verified 10/14/18 10:36) Nausea/Vom/Diarrhea levofloxacin [From Levaquin] Adverse Reaction (Verified 10/14/18 10:36) Nausea/Vom/Diarrhea sulfamethoxazole [From Bactrim] Adverse Reaction (Verified 10/14/18 10:36) Nausea/Vom/Diarrhea Home Medications: Ambulatory Orders Medication Instructions Recorded Aspirin 81 mg PO DAILY 06/07/16 Nitrofurantoin Macrocrystal 50 mg PO DAILY 06/07/16 [Macrodantin] Cholecalciferol (Vitamin D3) 2,000 unit PO DAILY 10/14/18 [Vitamin D3] Cranberry Conc/C/Bacill Coag 1 each PO DAILY 10/14/18 [Cranberry Tablet] Phenazopyridine HCl [Pyridium] 200 mg PO TID PRN 10/14/18 Surgical History: hysterectomy, - - bunion x2 Psychiatric History: No pertinent psych hx 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 Lives: Spouse/ Significant Other Smoking Status: Never smoker Tobacco Use: Non-smoker Alcohol: None Drugs: None - *Family History Maternal History Items: Heart Disease - CHF Paternal History Items: No pertinent history Review of Systems Constitutional: Denies: Chills, Fever, Weight Change HEENT: Denies: Head Aches, Sinus Congestion, Sinus Drainage Cardiovascular: Reports: Chest Pain, Palpitations Respiratory: Denies: Cough, Shortness of breath at rest, Sputum production Gastrointestinal: Denies: Abdominal Pain, Nausea, Vomiting Genitourinary: Denies: Dysuria Musculoskeletal: Denies: Joint Pain, Joint Tenderness Skin: Denies: Rash, Wounds Neurological: Denies: Numbness, Tingling, Focal weakness Psychiatric: Denies: Anxiety, Depression, Homicidal Ideations, Suicidal Ideations Hematologic/ Lymphatic: Denies: Easy Bruising, Easy Bleeding VTE Information - Inpt Only VTE Present on Admission: Yes VTE Mechan Device Prophylaxis: None VTE Pharm Prophylaxis ordered?: Yes Patient Problems: Active and Suspected Problems Chest pain, unspecified (Acute) Pulmonary embolism (Acute) Palpitations (Acute) - Physical Exam General: Alert, Oriented x3, Cooperative HEENT: Atraumatic, PERRLA, EOMI, Normocephalic Neck: Supple, No JVD, Negative Carotid Bruits Lungs: Clear to auscultation, Normal air movement Cardiovascular: Regular rate, No murmurs Abdomen: Bowel Sounds Present, Soft, Non Tender Extremities: No edema, Capillary Refill Less than 3 Seconds Skin: No rashes, No breakdown Musculoskeletal: No Tenderness to Palpation of Joints or Extremities Neurological: Cranial nerves II-XII grossly intact Psych/Mental Status: Normal Affect, Appropriate, Alert and oriented to time, place, person, mood and affect Vital Signs Temp Pulse Resp BP Pulse Ox 97.4 F L 87 17 172/79 H 98 10/14/18 10:36 10/14/18 14:36 10/14/18 14:36 10/14/18 14:36 10/14/18 14:36 Oxygen Delivery Method Room Air Weight: 201 lb 11.567 oz Body Mass Index (BMI) 34.6 Laboratory Tests Past 24 Hrs 10/14/18 10/14/18 10/14/18 10:58 10:58 10:58 WBC 7.2 RBC 4.84 Hgb 14.5 Hct 45.6 MCV 94.2 MCH 30.0 MCHC 31.8 L RDW 13.6 RDW Differential 45.3 H Plt Count 302 MPV 9.1 Immature Gran % (Auto) 0.100 Neut % (Auto) 62.9 Lymph % (Auto) 27.1 [place] % (Auto) 8.0 Eos % (Auto) 1.1 Baso % (Auto) 0.8 Absolute Neuts (auto) 4.5 Absolute Lymphs (auto) 1.94 Total Counted Not Reportable D-Dimer Quant (PE/DVT) 2.34 H* Sodium 138 Potassium 3.9 Chloride 107 Carbon Dioxide 29.0 Anion Gap 2 L BUN 15 Creatinine 0.78 Estim Creat Clear Calc 44.56 Est GFR (MDRD) Af Amer 93 Est GFR (MDRD) Non-Af 77 BUN/Creatinine Ratio 19.2 Glucose 106 Calcium 9.3 Troponin I < 0.015 Assessment/Plan All Active Problems Chest pain, unspecified (Acute) Pulmonary embolism (Acute) Palpitations (Acute) 1. Acute GEOFF pulmonary emboli - recieved lovenox in er. Start xarelto. No hypoxia/tachycardia/hypotension. Stable. Obs to PCU on tele. Stop home aspirin (she does not take this for anything specific. 2. Hx frequent UTIs - on prophylactic macrobid DVT ppx: lovenox --> xarelto DC planning: home in am if stable This patient was seen by Omid Al PA-C under the supervision of Doctor Najma.
--- NOTE | 2018-10-14 16:17 | VDLE_ITS ---
Reason For Study: PE RIGHT LEFT GSV is normal. GSV is normal. CFV is compressible, spontaneous, phasic, CFV is compressible, spontaneous, phasic, competent and demonstrates normal competent, and demonstrates normal augmentation. augmentation. FV is compressible, spontaneous, phasic, FV is compressible, spontaneous, phasic, competent and demonstrates normal competent and demonstrates normal augmentation. augmentation. POP V is compressible, spontaneous, phasic, POP V is compressible, spontaneous, phasic, competent and demonstrates normal competent and demonstrates normal augmentation. augmentation. T/P Trunk is compressible. T/P Trunk is compressible. PTV is compressible. PTV is compressible. RT PerV is compressible. LT PerV is compressible. Procedure Exam performed portable in patient room. The exam was diagnostic. A preliminary report was called and/or faxed to Carol LOGAN. Interpretation Summary No evidence for acute deep venous thrombosis bilateral lower extremities with patent and compressible bilateral great saphenous veins. Ordering Physician: Juanito Yao Performed By: Toney Martínez RVT
--- NOTE | 2018-10-14 16:39 | CHAPLAIN ---
Type of Pastoral Visit _x__ Initial Visit ___ Follow-up Visit ___ On-call Visit ___ General Patient Visit ___ Spiritual Assessment ___ Family Conference ___ Bereavement ___ Rapid Response ___ Code Blue ___ Other (describe below) Pastoral Care Referral From _x__ Patient ___ Family ___ Nurse ___ Physician ___ Principal Associate ___ Produce Laborer ___ Other (describe below) Sacrament/Intervention _x__ Active listening ___ Anointing ___ Pentecostalism ___ Bereavement ___ Communion ___ Eboni exploration ___ ___ Life review _x__ Prayer ___ Reconciliation ___ Sacrament of Sick _x__ Supportive presence ___ Wedding ___ Other (describe below) Pastoral Comments
[2018-10-14] MEDS: Acetaminophen 325 MG Tablet 650 MG PO ×2 (16:50→18:11)
[2018-10-14] MEDS: Rivaroxaban 15 MG Tablet PO (18:05)
[2018-10-15] VITALS (8 sets, daily range): BP systolic 114–149; BP diastolic 54–84; PULSE 73–104; RESP 11–16; TEMP 36.4–36.8; O2SAT 94–99
[2018-10-15] MEDS: Acetaminophen 325 MG Tablet 650 MG PO (05:39)
--- NOTE | 2018-10-15 07:02 | ECHOD_ITS ---
Reason For Study: EMBOLI Procedure This was a 2D Doppler, Color Flow transthoracic echocardiogram. The exam was of adequate technical quality. Exam performed portable in patient room. Left Ventricle Normal LV size. Left ventricular systolic function is normal. The estimated ejection fraction is 65 %. Diastolic function is indeterminate. No regional wall motion abnormalities noted. Right Ventricle Normal RV size. Normal systolic function. Atria The left atrium is mildly enlarged. Normal right atrium. No doppler evidence for ASD. Mitral Valve There is no mitral annular calcification. Normal mitral valve. Trivial mitral valve insufficiency. Tricuspid Valve Normal tricuspid valve. Trivial tricuspid valve insufficiency. Right ventricular systolic pressure estimated to be 29 mmHg. Aortic Valve Trisinus/trileaflet aortic valve. Normal aortic valve. Pulmonic Valve The pulmonic valve is not well visualized. Mild (1+) pulmonic valve insufficiency. Great Vessels Normal sized aortic root. Pericardium/Pleural No pericardial effusion. MMode/2D Measurements & Calculations LVIDd: 4.5 cm IVSd: 0.86 cm Ao root diam: 2.9 cm LVIDs: 2.6 cm LVPWd: 1.1 cm RVDd: 3.4 cm FS: 41.6 % LAV(MOD-bp): 41.8 ml LA A4 area: 16.8 cm2 LA dimension(2D): 3.5 cm LAV(MOD-bp) Indexed: 21.4 ml/m2 LAV(MOD-sp2): 33.4 ml LAV(MOD-sp4): 42.1 ml RA A4 area: 12.9 cm2 Time Measurements MV dec time: 0.19 sec Doppler Measurements & Calculations MV E max gildardo: 90.2 cm/sec Lat Peak E' Gildardo: 8.6 cm/sec Med Peak E' Gildardo: 6.5 cm/sec MV A max gildardo: 118.7 cm/sec E/E' lat: 10.4 E/E' med: 13.8 MV E/A: 0.76 Ao V2 max: 211.6 cm/sec LV V1 max: 186.3 cm/sec PA V2 max: 116.3 cm/sec Ao max P.9 mmHg LV V1 max P.9 mmHg PI end-d gildardo: 127.3 cm/sec TR max gildardo: 252.8 cm/sec TR max P.6 mmHg Interpretation Summary Left ventricular systolic function is normal. The estimated ejection fraction is 65 %. The left atrium is mildly enlarged. Trivial mitral valve insufficiency. Trivial tricuspid valve insufficiency. Mild (1+) pulmonic valve insufficiency. Right ventricular systolic pressure estimated to be 29 mmHg. Diastolic function is indeterminate. Ordering Physician: Neha Flores Referring Physician: YAN ZHU Performed By: Nita Benites, AAYUSH, RVT
[2018-10-15] MEDS: Rivaroxaban 15 MG Tablet PO (09:08)
[2018-10-15] MEDS: Acetaminophen/Butalbital/Caffe 1 Tablet PO (10:11)
--- NOTE | 2018-10-15 10:35 | CASEMGMT ---
Per Thom ESPOSITO, pt has concerns about Xarelto co-pay. Apparently, Dr. Yao called Xarelto in for pt last pm and he states he was told that pt's co-pay would be $30 at that time. Call to [facility] and per tech, pt's co-pay is $269 at this time and tech states that that is mostly deductible at this time. Pt provided with Xarelto 30 day free trial card at this time and instruction on use, voices understanding. Pt states that her placed call to [facility] and they states that subsequent Xarelto scripts will be $30. Pt voices no further questions/concerns/needs at this time. Kayla LOGAN CM
--- NOTE | 2018-10-15 11:46 | DCINST_ITS ---
- Discharge Diagnoses Current Active Problems: Current Active and Chronic Problems Chest pain, unspecified (Acute) Pulmonary embolism (Acute) Palpitations (Acute) You will use the following diet at home:: No restrictions Your food should be the consistency of: Regular Your liquids should be the consistency of: Regular/Thin Discharge Activity: Return to Normal Activity Allergies/Adverse Reactions: Allergies chlordiazepoxide [From Librax (with clidinium)] Allergy (Verified 10/14/18 10:36) Unknown ciprofloxacin [From Cipro] Allergy (Verified 10/14/18 10:36) Nausea/Vom/Diarrhea clidinium [From Librax (with clidinium)] Allergy (Verified 10/14/18 10:36) Unknown codeine Allergy (Verified 10/14/18 10:36) Unknown dicyclomine [From Bentyl] Allergy (Verified 10/14/18 10:36) Unknown nickel Allergy (Verified 10/14/18 10:36) Unknown gluten Adverse Reaction (Verified 10/14/18 10:36) Nausea/Vom/Diarrhea levofloxacin [From Levaquin] Adverse Reaction (Verified 10/14/18 10:36) Nausea/Vom/Diarrhea sulfamethoxazole [From Bactrim] Adverse Reaction (Verified 10/14/18 10:36) Nausea/Vom/Diarrhea Medications to take at Discharge Nitrofurantoin Macrocrystal [Macrodantin] 50 mg PO DAILY 06/07/16 Cholecalciferol (Vitamin D3) [Vitamin D3] 2,000 unit PO DAILY 10/14/18 Cranberry Conc/C/Bacill Coag [Cranberry Tablet] 1 each PO DAILY 10/14/18 Phenazopyridine HCl [Pyridium] 200 mg PO TID PRN 10/14/18 Rivaroxaban [Xarelto] 15 mg PO BIDCM tablet 10/15/18 Primary Care Physician: Hawk Carbone MD [Primary Care Provider] - Please follow up with your Primary Care Physician in: 1-2 weeks Test Results: Test results from this visit will be discussed in further detail at your follow- up appointment, if applicable. Proposed Discharge Date: 10/15/18
--- NOTE | 2018-10-15 12:22 | PHA.DC.MC ---
Pharmacy Service has performed discharge medication reconciliation and counseling for this patient. The patient's discharge medication list was reviewed for discrepancies and discrepancies were resolved. The patient was counseled on the following discharge medications and changes in medications for homegoing were reviewed. XARELTO The Reason for Use, instructions for use, and potential side effects were reviewed for all new medications. The patient's questions regarding all of their medications were answered. The patient was able to verbally demonstrate an understanding of their discharge medications. Home Medications Nitrofurantoin Macrocrystal [Macrodantin] 50 mg PO DAILY 06/07/16 Cholecalciferol (Vitamin D3) [Vitamin D3] 2,000 unit PO DAILY 10/14/18 Cranberry Conc/C/Bacill Coag [Cranberry Tablet] 1 each PO DAILY 10/14/18 Phenazopyridine HCl [Pyridium] 200 mg PO TID PRN 10/14/18 Rivaroxaban [Xarelto] 15 mg PO BIDCM tablet 10/15/18
--- NOTE | 2018-10-15 14:38 | PCM.DC.SUM ---
Discharge Date and Diagnosis - Problem List Patient Problems: Active and Suspected Problems Chest pain, unspecified (Acute) Pulmonary embolism (Acute) Palpitations (Acute) Date of Admission: 10/14/18 Date of Discharge: 10/15/18 - Primary Discharge Diagnosis Active and Suspected Problems Pulmonary emboli GEOFF anxiety hx of multiple bladder infections Left renal cyst - Secondary Discharge Diagnosis Chronic Problems Recurrent cystitis (Chronic) Hospital Course and Treatment Imaging Results: 10/15/18 07:02 Echo Complete [ECHO] Routine Final report pending CT/CTA Chest W/WO Contrast IMPRESSION: Pulmonary emboli in the left upper lobe pulmonary arterial branches. Findings suggestive of interstitial scarring at the lung bases. Left renal cyst. Operations: None Procedures: 2-D Echocardiogram Summary of Care Provided: Hospital course: The patient is a 73 year old F with past medical history of anxiety and multiple bladder infections who presents to the emergency room with chest pain. She was found to have an elevated d-dimer so a CTA of the chest was obtained. This revealed left upper lobe pulmonary emboli. She did have some tachycardia and was admitted to the PCU on telemetry for PE. She had no history of trauma, no recent travel, no family or personal history of blood clots, not on hormone therapy, and she does not smoke. She was given a dose of therapeutic Lovenox in the ER and then started on Xarelto. She did well overnight with no further issues. An echocardiogram was obtained the following morning, the results of this test are pending at this time. Troponin was negative. She was ambulatory without hypoxia. She was felt to be stable for discharge. She did complain of a headache while here but this resolved with Fioricet. She also had some sinus tenderness and was started on Flonase. She was discharged home in stable condition and will follow up with her PCP in 1-2 weeks. This patient was seen by Omid Al PA-C under the supervision of Doctor Sandra. [] Patient Problems: Active and Suspected Problems Chest pain, unspecified (Acute) Pulmonary embolism (Acute) Palpitations (Acute) - Physical Exam General: Alert, Oriented x3, Cooperative HEENT: Atraumatic, PERRLA, EOMI, Normocephalic Neck: Supple, No JVD, Negative Carotid Bruits Lungs: Clear to auscultation, Normal air movement Cardiovascular: Regular rate, No murmurs Abdomen: Bowel Sounds Present, Soft, Non Tender Extremities: No edema, Capillary Refill Less than 3 Seconds Skin: No rashes, No breakdown Musculoskeletal: No Tenderness to Palpation of Joints or Extremities Neurological: Cranial nerves II-XII grossly intact Psych/Mental Status: Appropriate, Anxious, Alert and oriented to time, place, person, mood and affect Vital Signs Temp Pulse Resp BP Pulse Ox 97.9 F 104 H 16 135/84 H 96 10/15/18 09:00 10/15/18 10:52 10/15/18 09:00 10/15/18 09:00 10/15/18 09:00 Oxygen Delivery Method Room Air Weight: 200 lb 9.93 oz Body Mass Index (BMI) 34.4 Intake and Output for Last 24 Hours 10/13/18 10/14/18 10/15/18 23:59 23:59 23:59 Intake Total 1244 / 1244 1100 / 1100 Balance 1244 / 1244 1100 / 1100 Discharge Diet: No Restrictions Discharge Activity: Return to Normal Activity Home Medications: Medications to take at Discharge Nitrofurantoin Macrocrystal [Macrodantin] 50 mg PO DAILY 06/07/16 Cholecalciferol (Vitamin D3) [Vitamin D3] 2,000 unit PO DAILY 10/14/18 Cranberry Conc/C/Bacill Coag [Cranberry Tablet] 1 each PO DAILY 10/14/18 Phenazopyridine HCl [Pyridium] 200 mg PO TID PRN 10/14/18 Acetaminophen/Butalbital/Caffe [Fioricet] 1 tablet PO Q4H PRN PRN #3 tablet 10/15/18 Fluticasone 0.05% [Flonase Nasal [place]] 1 spray NASAL DAILY #1 nasal.sry 10/15/18 Rivaroxaban [Xarelto] 15 mg PO BIDCM tablet 10/15/18 Following Prescrptions Were Given to Patient: Acetaminophen/Butalbital/Caffe [Fioricet] 1 tablet PO Q4H PRN PRN #3 tablet PRN Reason: Headache Fluticasone 0.05% [Flonase Nasal [place]] 1 spray NASAL DAILY #1 nasal.sry Primary Care Physician: Hawk Carbone MD [Primary Care Provider] - Please follow up with your Primary Care Physician in: 1-2 weeks Disposition: Home Minutes spent on discharge:: 35 Patient Condition:: Stable Medical Necessity - Tobacco Use Smoking Status: Never smoker Tobacco Use: Non-smoker Meaningful Use Info Meaningful Use Diagnoses (Choose all that apply): VTE - VTE Anticoag overlap given w/in hospital stay or rx'd at dc?: No Pt receive overlap for 5 days?: No Reason overlap not ordered, prescribed, or given for 5 days: Procedure Not Indicated
== END 2018-10-15 11:45 | disposition home or self-care (01) ==
LOC: ED 14:28 → PCU 15:42
PROVIDERS: Admitting Provider Internal Medicine; Emergency Provider Emergency Medicine; Family Provider Family Medicine; PCP Family Medicine; Visit Provider Family Medicine
DX: I26.99 Other pulmonary embolism without acute cor pulmonale (principal); R07.89 Other chest pain; Z79.899 Other long term (current) drug therapy; Z79.82 Long term (current) use of aspirin; R00.2 Palpitations; Z87.440 Personal history of urinary (tract) infections; I08.1 Rheumatic disorders of both mitral and tricuspid valves; N28.1 Cyst of kidney, acquired; E66.9 Obesity, unspecified; Z68.34 Body mass index [BMI] 34.0-34.9, adult; Z71.3 Dietary counseling and surveillance
CPT/HCPCS: 71045; 71275; 80048; 84484; 85025; 85379; 93005; 93306; 93970; 96360; 96361; 96372; 99218; 99285; J7030; Q9967; A4216; G0378

== ENCOUNTER → 2018-11-06 | Outpatient (CLI) | payer MEDICARE, SELFPAY ==
[2018-10-14 16:11] VITALS: BMI 34.4
[2018-11-06 17:17] LABS: Mucous, Urine 0 SEEN /hpf (<or=2+); Red Blood Cells-Urine 0 SEEN /hpf (0-5); Squamous Epithelial Cells - UA 0 SEEN /hpf (5-10)
[2018-11-06 20:19] LABS: Color, Urine Yellow (Yellow); Glucose, Dipstick Normal (Normal); Ketone-Dipstick Negative (Negative); Leukocyte Esterase-Dipstick 500 /ul (Negative); Nitrite-Dipstick Positive (Negative); Occult Blood-Urine 50 /ul (Negative); Protein-Dipstick Negative (Negative); Urine Bilirubin Dipstick Negative (Negative); Urine Clarity Sl. Cloudy (Clear); Urine Urobilinogen 1 mg/dl (Normal)
[2018-11-06 20:36] LABS: Bacteria 1+ /hpf (None Seen); White Blood Cells 50-100 SEEN /hpf (0-5)
== END | disposition home or self-care (01) ==
LOC: LAB 17:03
PROVIDERS: Family Provider Family Medicine; PCP Family Medicine; Referring Provider Obstetrics & Gynecology; Visit Provider Obstetrics & Gynecology
DX: N39.0 Urinary tract infection, site not specified (principal)
CPT/HCPCS: 81001; 87086; 87088; 87186

== ENCOUNTER 2018-11-07 06:23 | Emergency (ER) | payer MEDICARE, SELFPAY ==
[2018-10-14 16:11] VITALS: BMI 34.4
[2018-11-07 06:24] VITALS: BP 146/66; PULSE 91; RESP 16; TEMP 36.6; O2SAT 97; BMI 34.7
--- NOTE | 2018-11-07 06:36 | ED.DCSUM_ITS ---
- ER Visit Summary Date of Service: 11/07/18 Chief Complaint: [] History of Present Illness: The patient is a 73 F [] Physical Examination: [] Test Results: [] Emergency Department Course and Treatment: [] Treatment Plan: [] Disposition: [] Impression: [] This note was generated with [employer] dictation software. It may contain incorrect words, spelling, and punctuation that were not noted in review of the chart prior to signing ED Disposition - Plan for ED Patient: Disposition: Home or Assisted Living Instructions: ED UTI Cystitis Female Prescriptions: Amox/Clavulanate Tablet [Augmentin Tablet] 875 mg PO Q12H #10 tablet Phenazopyridine HCl [Pyridium] 200 mg PO BID PRN PRN #10 tablet PRN Reason: Pain Referrals: Hawk Carbone MD [Primary Care Provider] - Additional Instructions: Follow-up with your urologist in 5-7 days.
[2018-11-07] MEDS: Phenazopyridine 95 MG Tablet 190 MG PO (06:45)
[2018-11-07] MEDS: Amox/Clavulanate 875 MG Tablet PO (06:45)
[2018-11-07 06:50] VITALS: RESP 16
== END 2018-11-07 06:57 | disposition home or self-care (01) ==
LOC: ED 06:52
PROVIDERS: Emergency Provider Emergency Medicine; Family Provider Family Medicine; PCP Family Medicine
DX: N30.90 Cystitis, unspecified without hematuria (principal); Z87.440 Personal history of urinary (tract) infections; I26.99 Other pulmonary embolism without acute cor pulmonale; Z79.02 Long term (current) use of antithrombotics/antiplatelets
CPT/HCPCS: 99283

== ENCOUNTER 2018-11-14 08:12 | Emergency (ER) | payer MEDICARE, SELFPAY ==
[2018-11-14 08:14] VITALS: BP 129/66; PULSE 87; RESP 24; TEMP 36.6; O2SAT 100; BMI 34.4
[2018-11-14 08:24] VITALS: TEMP 36.6
--- NOTE | 2018-11-14 08:24 | CT_ITS ---
STUDY: CT ABDOMEN AND PELVIS WITH CONTRAST REASON FOR EXAM: Female, 73 years old. Lower quadrant pain RADIATION DOSAGE (If Supplied By Facility): CTDIvol = ( 19.06 ) mGy, DLP = ( 981.00 ) mGycm TECHNIQUE: Transaxial images were obtained from the dome of the diaphragm to the symphysis pubis with oral contrast. 100ml IV/Oral Isovue 300 was administered. Sagittal and coronal images were reconstructed. Individualized dose optimization techniques were used for this CT. COMPARISON: 06/10/2017 FINDINGS: The visualized lung bases are unremarkable. The visualized portions of the heart are within normal limits. Normal liver. Normal gallbladder and extrahepatic biliary system. Normal spleen. Normal pancreas. Normal bilateral adrenal glands. There is an extrarenal pelvis in the right kidney and multiple simple cysts in the left kidney. No obstructive uropathy noted. There are calcifications near the distal left ureter but are shown on reconstructed images to be extrinsic to the distal ureter. Normal visualized stomach. Normal small intestine. Retained stool noted in the colon. The appendix is visualized and appears normal. Appendix best seen on coronal recon image 62 Normal abdominal aorta. Normal inferior vena cava. Normal retroperitoneum. Normal urinary bladder. No suspicious cystic mass or free fluid Normal abdominal wall. There are diffuse degenerative changes of the visualized lumbar spine. CT/Abdomen/Pelvis WITH Contrast IMPRESSION: No obstructive uropathy. Stable left renal cysts No CT evidence of an acute inflammatory process, normal appendix visualized Retained stool noted in the colon Electronically Signed: Kody Pickett MD at 11:25 EDT , Service support ,
--- NOTE | 2018-11-14 08:30 | ED.DCSUM_ITS ---
History of Present Illness Chief Complaint: Shortness of Breath Detail of Chief Complaint: Chief complaint bilateral abdominal pain Informant: Patient, Family Onset: Weeks Context: - - Patient complains of shortness of breath for 2 weeks as well as abdominal pain. She believes her diarrhea and urinary tract infection is secondary to anticoagulant, Xarelto Timing: Continuous Quality: Bilateral mid/lower quadrant abdominal pain and dyspnea Location: Abdomen Current Severity: Mild Maximum Severity: Moderate Worsened by: Palpation Relieved by: Nothing Associated Symptoms: PE unprovoked, no night sweats or weight loss Narrative: Patient is an elderly woman presently on anticoagulant for pulmonary embolus diagnosed October 14. She believes her other symptoms i.e. diarrhea, urinary tract infection and yeast infection or secondary to the anticoagulant. She denies fever, chills night sweats. She denies ocular, visual auditory symptoms. She denies rhinorrhea, congestion or postnasal drainage. She denies sore th roat. She denies chest pain of any type. She does report shortness of breath. She does admit to mild anxiety. She denies change in the color of her urine or stool. She states she was seen for the diarrhea and cultures were negative. Patient denies leg pain, swelling discoloration. She denies history of diverticulosis or diverticulitis. Prior similar symptoms: Yes Recent Illness/Hospitalization: Yes - Past Medical History (1) Pulmonary embolism Status: Acute (2) Recurrent cystitis Status: Chronic Past Medical History - Allergies and Home Meds Allergies/Adverse Reactions: Allergies chlordiazepoxide [From Librax (with clidinium)] Allergy (Verified 11/14/18 08:13) Unknown ciprofloxacin [From Cipro] Allergy (Verified 11/14/18 08:13) Nausea/Vom/Diarrhea clidinium [From Librax (with clidinium)] Allergy (Verified 11/14/18 08:13) Unknown codeine Allergy (Verified 11/14/18 08:13) Unknown dicyclomine [From Bentyl] Allergy (Verified 11/14/18 08:13) Unknown nickel Allergy (Verified 11/14/18 08:13) Unknown gluten Adverse Reaction (Verified 11/14/18 08:13) Nausea/Vom/Diarrhea levofloxacin [From Levaquin] Adverse Reaction (Verified 11/14/18 08:13) Nausea/Vom/Diarrhea sulfamethoxazole [From Bactrim] Adverse Reaction (Verified 11/14/18 08:13) Nausea/Vom/Diarrhea Primary Care Physician: Hawk Carbone MD [Primary Care Provider] - Prior records reviewed: Yes Surgical History: hysterectomy, - - bunion x2 Lives: Spouse/ Significant Other Smoking Status: Never smoker Drugs: None - Family History Maternal Family History: Reports: Heart Disease - CHF Paternal Family History: Reports: No pertinent history Review of Systems General: Denies: Chills, Fever, Malaise, Subjective, Sweats, Weight loss, - Eyes: Denies: Visual changes - bilaterally, Blurred Vision - bilaterally, Diplopia ENT: Denies: Bilateral ear pain, Rhinorrhea, Sore throat Cardiovascular: Denies: Chest pain, Palpitations Respiratory: Reports: Dyspnea. Denies: Cough, Sputum, Dyspnea on exertion, Orthopnea, Paroxysmal nocturnal dyspnea Gastrointestinal: Reports: Abdominal pain, Nausea, Diarrhea. Denies: Vomiting, Constipation, Melena, Hematochezia Genitourinary: Reports: Dysuria - Resolved Musculoskeletal: Denies: Myalgias, Arthralgias, Neck pain, Back pain, Swelling, Extremity Pain, -, - Skin: Denies: Rash, Wounds Neurological: Denies: Headache, Weakness, Parasthesia, Numbness, -, - Psych: Reports: Anxiety Hematologic: Denies: Easy bruising, Easy bleeding, Lymphadenopathy, -, - Allergy: Denies: Uticaria, Swelling of the mouth, Swelling of the tongue, -, - Physical Exam Vital Signs/Narrative: Vital Signs Temp Pulse Resp BP Pulse Ox 11/14/18 08:24 97.9 F 11/14/18 08:14 97.9 F 87 24 H 129/66 H 100 Inital Vital Signs reviewed: Yes General: Well nourished, Well developed, Obese, No Acute Distress Head: Normocephalic, Atraumatic Eyes: Perrl, EOMI. Negative for: Pale conjunctiva, Scleral icterus, - ENT: Moist mucous membranes, No rhinorrhea Neck: Supple, Nontender, No lymphadenopathy, No JVD Cardiovascular: Regular rate, Regular rhythm, No murmurs, Normal S1, Normal S2 Respiratory: No distress, CTA bilaterally, Chest nontender. Negative for: Decreased Air Movement Abdomen: Soft, Nondistended, No masses, Tender, Guarding, Rebound tenderness, Hypoactive bowel sounds, - - Patient has tenderness right and left lower quadrants with guarding and mild rebound tenderness.. Negative for: Hepatomegaly, Splenomegaly, Mass, Pulsatile mass, Rovsig's sign, Taylor's sign Back: Nontender, Normal Inspection. Negative for: CVA tenderness Extremities: Nontender, No edema Skin: Normal color, No rash. Negative for: Cyanosis, Jaundice Neurological: Alert, Oriented x3, Cranial nerves II-XII grossly intact, Normal Strength, Normal Sensation Psychological: Normal affect, Normal Mood, - - Patient appears slightly anxious. Diagnostic/Tx/Re-eval Impressions Abdomen/Pelvis CT 11/14/18 08:24 IMPRESSION: No obstructive uropathy. Stable left renal cysts No CT evidence of an acute inflammatory process, normal appendix visualized Retained stool noted in the colon Electronically Signed: Kody Pickett MD at 11:25 EDT , Service support , 11/14/18 08:24 Abdomen/Pelvis WITH Contrast [CT] Stat Laboratory Results 11/14/18 11/14/18 11/14/18 08:45 08:49 08:49 WBC 6.5 RBC 4.57 Hgb 14.2 Hct 42.1 MCV 92.1 MCH 31.1 MCHC 33.7 RDW 13.5 RDW Differential 45.0 H Plt Count 299 MPV 9.1 Immature Gran % (Auto) 0.200 Neut % (Auto) 58.1 Lymph % (Auto) 34.1 [place] % (Auto) 5.8 Eos % (Auto) 1.5 Baso % (Auto) 0.3 Absolute Neuts (auto) 3.8 Absolute Lymphs (auto) 2.23 Total Counted Not Reportable Sodium 138 Potassium 4.6 Chloride 104 Carbon Dioxide 29.0 Anion Gap 5 BUN 10 Creatinine 0.75 Estim Creat Clear Calc 44.56 Est GFR (MDRD) Af Amer 98 Est GFR (MDRD) Non-Af 81 BUN/Creatinine Ratio 13.3 Glucose 103 Calcium 9.1 Urine Color Yellow Urine Clarity Clear Urine pH 8.0 Ur Specific [place] 1.010 Urine Protein Negative Urine Glucose (UA) Normal Urine Ketones Negative Urine Occult Blood 50 H Urine Nitrite Negative Urine Bilirubin Negative Urine Urobilinogen Normal Ur Leukocyte Esterase 25 H Urine RBC 0-5 SEEN Urine WBC 0 SEEN Ur Squamous Epith Cells 0-5 SEEN Urine Bacteria RARE Urine Mucus 0 SEEN - Medical Decision Making With history of dyspnea since pulmonary embolus and on appropriate anticoagulant and reports compliance with normal cardiovascular exam chest x-ray was not obtained. Concern regarding bilateral lower abdominal pain with guarding and rebound tenderness. With history of recurrent urinary tract infection one needs to entertain possibility of diverticular disease. CBC was obtained to assess white count H&H. Basic metabolic panel was obtained to assess electrolytes, CO2 and anion gap as well as renal function. CT of the abdomen and pelvis with p.o. and IV contrast was ordered to evaluate her abdominal findings and complaints. Vital signs were noted and triage reported respiratory 24. Per my exam counting for 1 minute respiratory rate was 16. CBC, BMP, UA are unremarkable. CT of the abdomen revealed fecal stasis. This may be the cause of her bilateral pain. Will treat symptomatically. ED Disposition - Plan for ED Patient: Diagnosis: Abdominal pain, bilateral lower quadrant, Recent pulmonary embolus, Dyspnea, Anxious mood Instructions: ED Constipation, ED Dyspnea Shortness of Breath Referrals: Hawk Carbone MD [Primary Care Provider] - 1 Week if not improving
[2018-11-14 09:02] LABS: Mucous, Urine 0 SEEN /hpf (<or=2+); White Blood Cells 0 SEEN /hpf (0-5)
[2018-11-14 09:04] LABS: Absolute Lymphocyte Count 2.23 X10^3/ul (0.83-4.51); Absolute Neutrophil Count 3.8 X10^3/uL (2.0-7.7); Basophil# 0.02 X10^3/uL; Basophil% 0.3 % (0-1); Eosinophils% 1.5 % (0-5); Hematocrit 42.1 % (37-47); Hemoglobin 14.2 g/dl (12.0-15.0); Lymphocyte # 2.23 X10^3/ul (4.0); Lymphocyte % 34.1 % (19-41); Mean Corp Hgb Conc 33.7 g/gl (32-36); Mean Corpuscular Hgb 31.1 pg (27.0-32.0); Mean Corpuscular Volume 92.1 fL (81-99); Mean Platelet Vol. 9.1 fl (6.2-12.0); Monocyte# 0.38 X10^3/uL; Monocyte% 5.8 % (0-10); Neutrophil % 58.1 % (47-70); POSITIVE COUNT NO; POSITIVE DIFFERENTIAL NO; POSITIVE MORPHOLOGY NO; Platelet Count 299 K/mm3 (150-450); RBC Distribution Width CV 13.5 % (11.6-14.6); Red Blood Count 4.57 M/mm3 (4.2-5.4); White Blood Count 6.5 K/mm3 (4.4-11.0)
[2018-11-14 09:04] LABS: Color, Urine Yellow (Yellow); Glucose, Dipstick Normal (Normal); Ketone-Dipstick Negative (Negative); Leukocyte Esterase-Dipstick 25 /ul (Negative); Nitrite-Dipstick Negative (Negative); Occult Blood-Urine 50 /ul (Negative); Protein-Dipstick Negative (Negative); Urine Bilirubin Dipstick Negative (Negative); Urine Clarity Clear (Clear); Urine Urobilinogen Normal (Normal)
[2018-11-14 09:10] LABS: Bacteria RARE /hpf (None Seen); Red Blood Cells-Urine 0-5 SEEN /hpf (0-5); Squamous Epithelial Cells - UA 0-5 SEEN /hpf (5-10)
[2018-11-14 09:20] LABS: Anion Gap 5 (5-15); BUN 10 mg/dL (7-18); BUN/Creat Ratio 13.3 RATIO (10-20); Calcium,Total 9.1 mg/dL (8.5-10.1); Chloride 104 mmol/L (98-107); Creatinine, Serum 0.75 mg/dL (0.55-1.02); EST Glomerular Filtration Rate 81 mL/min (>60); Est Glom Filt Rate - Afr Amer 98 mL/min (>60); Estimated Creatinine Clearance 44.56 ml/min; Glucose 103 mg/dL (74-106); Potassium 4.6 mmol/L (3.5-5.1); Sodium Level 138 mmol/L (136-145)
[2018-11-14] MEDS: Ondansetron 4 MG/2 ML Vial IV (10:51)
[2018-11-14] MEDS: Morphine 4 MG/ML Syringe IV (10:52)
[2018-11-14 11:58] VITALS: BP 144/69; PULSE 79; RESP 17; TEMP 36.7; O2SAT 98
[2018-11-14 11:59] VITALS: BP 144/69; PULSE 79; RESP 17; O2SAT 98
== END 2018-11-14 12:00 | disposition home or self-care (01) ==
LOC: ED 08:52
PROVIDERS: Emergency Provider Emergency Medicine; Family Provider Family Medicine; PCP Family Medicine
DX: R10.30 Lower abdominal pain, unspecified (principal); R06.00 Dyspnea, unspecified; F41.9 Anxiety disorder, unspecified; E66.9 Obesity, unspecified; Z86.711 Personal history of pulmonary embolism; Z87.440 Personal history of urinary (tract) infections; Z79.02 Long term (current) use of antithrombotics/antiplatelets
CPT/HCPCS: 74177; 80048; 81001; 85025; 96361; 96374; 96375; 99284; J7030; Q9967; A4216; J2405

== ENCOUNTER → 2019-04-02 | Outpatient (CLI) | payer MEDICARE, SELFPAY ==
[2019-04-02 12:37] LABS: Mucous, Urine 0 SEEN /hpf (<or=2+); Squamous Epithelial Cells - UA 0 SEEN /hpf (5-10)
[2019-04-02 12:52] LABS: Color, Urine Yellow (Yellow); Glucose, Dipstick Normal (Normal); Ketone-Dipstick Negative (Negative); Leukocyte Esterase-Dipstick 500 /ul (Negative); Nitrite-Dipstick Positive (Negative); Occult Blood-Urine 50 /ul (Negative); Protein-Dipstick Negative (Negative); Urine Bilirubin Dipstick Negative (Negative); Urine Clarity Sl. Cloudy (Clear); Urine Urobilinogen Normal (Normal)
[2019-04-02 13:02] LABS: Red Blood Cells-Urine 0-5 SEEN /hpf (0-5); White Blood Cells 50-100 SEEN /hpf (0-5)
[2019-04-02 13:03] LABS: Bacteria 2+ /hpf (None Seen)
== END | disposition home or self-care (01) ==
LOC: LAB 11:17
PROVIDERS: Family Provider Family Medicine; PCP Family Medicine; Referring Provider Obstetrics & Gynecology; Visit Provider Obstetrics & Gynecology
DX: N39.0 Urinary tract infection, site not specified (principal)
CPT/HCPCS: 81001; 87086; 87088; 87186

== ENCOUNTER 2019-06-13 12:32 | Emergency (ER) | payer MEDICARE, SELFPAY ==
[2019-06-13 12:33] VITALS: BP 151/73; PULSE 101; RESP 14; TEMP 37.1; O2SAT 99; BMI 34.7
--- NOTE | 2019-06-13 12:56 | CT_ITS ---
STUDY: CTA CHEST REASON FOR EXAM: Female, 73 years old. Chest pain. Shortness of breath and dyspnea. History of prior pulmonary emboli. RADIATION DOSAGE (If Supplied By Facility): CTDIvol = ( 9.29 ) mGy, DLP = ( 403.48 ) mGycm TECHNIQUE: The examination was performed with the intravenous administration of IV Isovue 370 100mL. Post-processing of the angiographic images was performed, with multiplanar reformation and 3D reconstruction. Individualized dose optimization techniques were used for this CT. COMPARISON: Comparison is made with prior examination dated October 14, 2018. FINDINGS: Small benign-appearing bilateral axillary lymph nodes. Several nonocclusive intraluminal filling defects are seen in branches of the left upper lobe pulmonary artery. Smaller filling defects are seen in branches of the right upper lobe pulmonary artery. Normal thoracic aorta and visualized great vessels. There is no demonstrated aortic dissection. Normal heart and pericardium. Normal mediastinum. Normal hilar regions. Normal visualized trachea and bronchi. The lungs are well expanded. Increased markings in the lower lobes with areas of bronchiectasis suggestive of scarring. This is unchanged. Normal pleura. Normal chest wall structures. There are degenerative changes of thoracic spine. Increased kyphosis. Once again, a lobulated cyst is seen in the mid upper aspect of the left kidney. CT/CTA Chest W/WO Contrast IMPRESSION: Nonocclusive filling defects in branches of the upper lobe pulmonary arteries more prominent on the left side. Electronically Signed: Aramis Montes, at 14:44 EST , Service support ,
--- NOTE | 2019-06-13 12:56 | EKG12_ITS ---
Test Reason : SOB Blood Pressure : / mmHG Vent. Rate : 095 BPM Atrial Rate : 095 BPM P-R Int : 146 ms QRS Dur : 078 ms QT Int : 348 ms P-R-T Axes : 055 -30 012 degrees QTc Int : 437 ms Normal sinus rhythm Left axis deviation Nonspecific ST abnormality Abnormal ECG Confirmed by LISHA LUZ, PHIL ([id number]), editor managing newspaper RUPERT LANIER ([id number]) on 06/16/2019 9:40:20 AM Referred By: ANTHONY Confirmed By:PHIL HUSAIN MD
[2019-06-13 13:17] VITALS: O2SAT 98
[2019-06-13] MEDS: Aspirin 81 MG TAB.CHEW 324 MG PO (13:19)
[2019-06-13 13:35] LABS: Absolute Lymphocyte Count 2.35 X10^3/uL (0.83-4.51); Absolute Neutrophil Count 4.6 X10^3/uL (2.0-7.7); Basophil# 0.05 X10^3/uL; Basophil% 0.6 % (0-1); Eosinophil# 0.16 X10^3/uL; Eosinophils% 2.1 % (0-5); Hematocrit 41.1 % (37-47); Hemoglobin 13.6 g/dL (12.0-15.0); Lymphocyte # 2.35 X10^3/ul (4.0); Lymphocyte % 30.4 % (19-41); Mean Corp Hgb Conc 33.1 g/dL (32-36); Mean Corpuscular Hgb 30.8 pg (27.0-32.0); Mean Platelet Vol. 8.9 fl (6.2-12.0); Monocyte% 6.5 % (0-10); NRBC Flagged by Analyzer 0 % (0-5); Neutrophil # 4.63 X10^3/uL (2.7-7.7); Neutrophil % 59.8 % (47-70); Platelet Count 275 K/mm3 (150-450); RBC Distribution Width CV 13.2 % (11.6-14.6); Red Blood Count 4.42 M/mm3 (4.2-5.4); White Blood Count 7.7 K/mm3 (4.4-11.0)
[2019-06-13 13:51] LABS: Anion Gap 6 (5-15); BUN 14 mg/dL (7-18); BUN/Creat Ratio 18.5 RATIO (10-20); Calcium,Total 9.5 mg/dL (8.5-10.1); Chloride 107 mmol/L (98-107); Creatinine, Serum 0.76 mg/dL (0.55-1.02); EST Glomerular Filtration Rate 80 mL/min (>60); Est Glom Filt Rate - Afr Amer 97 mL/min (>60); Estimated Creatinine Clearance 44.56 ml/min; Glucose 132 mg/dL (74-106); Sodium Level 140 mmol/L (136-145)
--- NOTE | 2019-06-13 15:51 | ED.DCSUM_ITS ---
History of Present Illness Chief Complaint: Shortness of Breath Informant: Patient Narrative: Patient presenting due to concern for the possibility for pulmonary embolus. Patient reports that she had a unprovoked PE last year in September and was on 6 months of anticoagulation. She has been off of Xarelto now. She states that since yesterday she has been dealing with some chest pain and feelings of mild shortness of breath. She denies any syncope or palpitations associated with this. Patient does report that she had extensive work-up with hematology that did not uncover a specific reason for her pulmonary emboli. Patient is otherwise healthy and takes no other medications. Review of systems otherwise negative. Past Medical History - Allergies and Home Meds Allergies/Adverse Reactions: Allergies chlordiazepoxide [From Librax (with clidinium)] Allergy (Verified 06/13/19 12:39) Unknown ciprofloxacin [From Cipro] Allergy (Verified 06/13/19 12:39) Nausea/Vom/Diarrhea clidinium [From Librax (with clidinium)] Allergy (Verified 06/13/19 12:39) Unknown codeine Allergy (Verified 06/13/19 12:39) Unknown dicyclomine [From Bentyl] Allergy (Verified 06/13/19 12:39) Unknown nickel Allergy (Verified 06/13/19 12:39) Unknown gluten Adverse Reaction (Verified 06/13/19 12:39) Nausea/Vom/Diarrhea levofloxacin [From Levaquin] Adverse Reaction (Verified 06/13/19 12:39) Nausea/Vom/Diarrhea sulfamethoxazole [From Bactrim] Adverse Reaction (Verified 06/13/19 12:39) Nausea/Vom/Diarrhea Primary Care Physician: Hawk Carbone MD [Primary Care Provider] - Past Medical History: - - Pulmonary embolus Surgical History: hysterectomy, - - bunion x2 Smoking Status: Never smoker - Family History Maternal Family History: Reports: Heart Disease - CHF Paternal Family History: Reports: No pertinent history Review of Systems All systems negative except as indicated General: Denies: Chills, Fever, Sweats Eyes: Denies: Visual changes - bilaterally, Diplopia ENT: Denies: Rhinorrhea, Sore throat Cardiovascular: Reports: Chest pain Respiratory: Reports: Dyspnea Gastrointestinal: Denies: Abdominal pain, Nausea, Vomiting, Diarrhea, Melena, Hematochezia Genitourinary: Denies: Dysuria, Hematuria, Frequency Musculoskeletal: Denies: Back pain, Extremity Pain Skin: Denies: Rash, Wounds Neurological: Denies: Headache, Weakness, Numbness Psych: Denies: Depression Endocrine: Denies: Polyuria Hematologic: Denies: Easy bruising Allergy: Denies: Swelling of the mouth Physical Exam Vital Signs/Narrative: Vital Signs Temp Pulse Resp BP Pulse Ox 06/13/19 13:17 98 06/13/19 12:33 98.8 F 101 H 14 151/73 H 99 Inital Vital Signs reviewed: Yes General: Well nourished, Well developed, No Acute Distress Head: Normocephalic, Atraumatic Eyes: Perrl, EOMI ENT: Moist mucous membranes, No rhinorrhea Neck: Supple, Nontender Cardiovascular: Regular rate, Regular rhythm, No murmurs Respiratory: No distress, CTA bilaterally, Chest nontender Abdomen: Soft, Nontender, Nondistended, Normal bowel sounds Back: Nontender, Normal Inspection Extremities: Nontender, No edema Skin: Normal color, No rash Neurological: Alert, Oriented x3, Cranial nerves II-XII grossly intact, Normal Strength, Normal Sensation Psychological: Normal affect, Normal Mood Diagnostic/Tx/Re-eval - EKG Initial EKG Interpretation: - - Sinus rhythm at 95 with some left axis deviation noted. Nonspecific ST changes, normal T waves. - Medical Decision Making Patient presented for evaluation due to concern for PE. Given her prior history of PE, she is a higher pretest probability. CBC chemistry and troponin were obtained which were found to be unremarkable. CT angiogram of the chest shows some filling defects likely consistent with small pulmonary emboli. Patient will be started on Xarelto. She does report that she had intolerance to the 50 mg twice a day dosing that she was started on, but did very well on the 20 mg once a day. As these are small pulmonary emboli I believe that starting with 20 mg once a day is reasonable. Patient will follow-up with hematology. ED Disposition - Plan for ED Patient: Disposition: Home or Assisted Living Diagnosis: Pulmonary embolism Instructions: Pulmonary Embolism Prescriptions: Rivaroxaban [Xarelto] 20 mg PO DAILY #30 tab Prescription Printed Referrals: Hawk Carbone MD [Primary Care Provider] - Additional Instructions: Follow-up with your clerical administrator
[2019-06-13] MEDS: Rivaroxaban 20 MG Tablet PO (16:05)
[2019-06-13 16:06] VITALS: BP 137/69; PULSE 81; RESP 16; O2SAT 98
== END 2019-06-13 16:12 | disposition home or self-care (01) ==
PROVIDERS: Emergency Provider Emergency Medicine; Family Provider Family Medicine; PCP Family Medicine
DX: I26.99 Other pulmonary embolism without acute cor pulmonale (principal); Z86.711 Personal history of pulmonary embolism
CPT/HCPCS: 71275; 80048; 84484; 85025; 93005; 99285; Q9967

== ENCOUNTER 2019-08-11 08:39 | Emergency (ER) | payer MEDICARE, SELFPAY ==
[2019-08-11 08:40] VITALS: BP 145/63; PULSE 96; RESP 16; TEMP 36.8; O2SAT 100; BMI 34.3
--- NOTE | 2019-08-11 08:48 | CT_ITS ---
STUDY: CTA CHEST REASON FOR EXAM: Female, 74 years old. PE, CHEST PAIN, HX PE RADIATION DOSAGE (If Supplied By Facility): CTDIvol = ( 11.10 ) mGy, DLP = ( 411.87 ) mGycm TECHNIQUE: The examination was performed with the intravenous administration of IV 100mL Isovue-300. Post-processing of the angiographic images was performed, with multiplanar reformation and 3D reconstruction. Individualized dose optimization techniques were used for this CT. COMPARISON: Comparison is made with prior study dated June 13, 2019. FINDINGS: Small bilateral axillary lymph nodes. Normal enhancement of the main pulmonary artery and right and left pulmonary arteries. Normal enhancement of the bilateral peripheral pulmonary arteries. There is no demonstrated pulmonary embolism. Normal thoracic aorta and visualized great vessels. There is no demonstrated aortic dissection. Normal heart and pericardium. Normal mediastinum. Normal hilar regions. Normal visualized trachea and bronchi. The lungs are well expanded. Mild degree of emphysematous changes in the upper lobes. There is evidence of scarring with bronchiectasis and honeycombing in the lower lobes. This is unchanged. Normal pleura. Normal chest wall structures. Normal osseous structures. Small hiatal hernia. CT/CTA Chest W/WO Contrast IMPRESSION: Findings suggestive of scarring in the lower lobes with emphysematous changes in the upper lobes. No evidence of pulmonary embolism. Electronically Signed: Aramis Montes, at 10:39 EST , Service support ,
--- NOTE | 2019-08-11 08:48 | EKG12_ITS ---
Test Reason : Blood Pressure : / mmHG Vent. Rate : 091 BPM Atrial Rate : 091 BPM P-R Int : 142 ms QRS Dur : 088 ms QT Int : 364 ms P-R-T Axes : 055 -21 017 degrees QTc Int : 447 ms Normal sinus rhythm Leftward [place] Poor R- wave Progression Confirmed by YENNY LUZ, NAIMA ([id number]), slot editor RUPERT LANIER ([id number]) on 08/13/2019 10:05:50 AM Referred By: ANTHONY Confirmed By:NAIMA RAMON MD
--- NOTE | 2019-08-11 08:50 | ED.VIS.GEN ---
History of Present Illness Chief Complaint: Chest Pain Detail of Chief Complaint: Shortness of breath and left scapular pain not chest pain Informant: Patient Onset: Today Context: Sudden Onset Timing: Continuous Quality: Pain Location: Left scapula Current Severity: Mild Maximum Severity: Moderate Worsened by: Breathing Relieved by: Nothing Associated Symptoms: Dyspnea Narrative: Patient is a 72-year-old woman with history of multiple unprovoked pulmonary embolus. She presents because she developed abrupt onset of left scapular pain with dyspnea. She states this is similar to her prior PE. She was recently placed on Eliquis. She reportedly had failure on Xarelto. Patient states the left scapular pain has improved. She still reports mild dyspnea. She denies fever, chills night sweats. She denies ocular, visual auditory symptoms. She denies chest pain. She denies nausea, vomiting or diaphoresis. She denies abdominal pain, black or maroon-colored stool. She denies urinary symptoms. She denies leg pain, swelling or discoloration. She states she is had her legs scanned in the past and no DVT was noted even with prior PEs. Patient states she is compliant with her medication. She states she took her dose of Eliquis at 0800. She sees a garnett fixer, Dr. Cheatham, whose practice is at [facility]. Prior similar symptoms: Yes - Pulmonary embolus Recent Illness/Hospitalization: No - Past Medical History (1) Palpitations Status: Acute (2) Pulmonary embolism Status: Acute (3) Recurrent cystitis Status: Chronic Past Medical History - Allergies and Home Meds Allergies/Adverse Reactions: Allergies chlordiazepoxide [From Librax (with clidinium)] Allergy (Verified 08/11/19 08:44) Unknown ciprofloxacin [From Cipro] Allergy (Verified 08/11/19 08:44) Nausea/Vom/Diarrhea clidinium [From Librax (with clidinium)] Allergy (Verified 08/11/19 08:44) Unknown codeine Allergy (Verified 08/11/19 08:44) Unknown dicyclomine [From Bentyl] Allergy (Verified 08/11/19 08:44) Unknown nickel Allergy (Verified 08/11/19 08:44) Unknown gluten Adverse Reaction (Verified 08/11/19 08:44) Nausea/Vom/Diarrhea levofloxacin [From Levaquin] Adverse Reaction (Verified 08/11/19 08:44) Nausea/Vom/Diarrhea sulfamethoxazole [From Bactrim] Adverse Reaction (Verified 08/11/19 08:44) Nausea/Vom/Diarrhea Primary Care Physician: Hawk Carbone MD [Primary Care Provider] - Prior records reviewed: Yes Surgical History: hysterectomy, - - bunion x2 Lives: Spouse/ Significant Other Smoking Status: Never smoker Alcohol: None Drugs: None - Family History Maternal Family History: Reports: Heart Disease - CHF Paternal Family History: Reports: No pertinent history Review of Systems General: Denies: Chills, Fever, Malaise, Subjective, Sweats, Weight loss Eyes: Denies: Visual changes - bilaterally, Blurred Vision - bilaterally ENT: Denies: Rhinorrhea, Sore throat Cardiovascular: Reports: Heart racing - States her monitor at home read heart rate of 110.. Denies: Chest pain, Palpitations Respiratory: Reports: Dyspnea. Denies: Cough, Sputum, Dyspnea on exertion, Orthopnea, Paroxysmal nocturnal dyspnea, -, - Gastrointestinal: Denies: Abdominal pain, Nausea, Vomiting, Diarrhea, Melena, Hematochezia Genitourinary: Denies: Dysuria, Hematuria, Frequency Musculoskeletal: Reports: Back pain - Patient reports atraumatic left scapular pain. This is the same pain she experienced with prior PEs.. Denies: Myalgias, Arthralgias, Neck pain, Swelling, Extremity Pain, -, - Skin: Denies: Rash, Wounds Neurological: Denies: Headache, Weakness, Numbness Hematologic: Reports: Easy bruising. Denies: Easy bleeding Physical Exam Vital Signs/Narrative: Vital Signs Temp Pulse Resp BP Pulse Ox 08/11/19 08:40 98.2 F 96 16 145/63 H 100 Inital Vital Signs reviewed: Yes General: Well nourished, Well developed, No Acute Distress Head: Normocephalic, Atraumatic Eyes: Perrl, EOMI. Negative for: Pale conjunctiva, Scleral icterus ENT: Moist mucous membranes, No rhinorrhea Neck: Supple, Nontender, No lymphadenopathy, No JVD Cardiovascular: Regular rate, Regular rhythm, No murmurs, Normal S1, Normal S2 Respiratory: No distress, CTA bilaterally, Chest nontender Abdomen: Soft, Nontender, Nondistended, Normal bowel sounds Back: Nontender, Normal Inspection Extremities: Nontender, No edema, - - Bruises noted right and left lower extremity. Skin: Normal color, No rash. Negative for: Cyanosis, Diaphoresis, Jaundice Neurological: Alert, Oriented x3, Cranial nerves II-XII grossly intact, Normal Strength, Normal Sensation Psychological: Normal affect, Normal Mood Diagnostic/Tx/Re-eval Impressions Chest CTA 08/11/19 08:48 IMPRESSION: Findings suggestive of scarring in the lower lobes with emphysematous changes in the upper lobes. No evidence of pulmonary embolism. Electronically Signed: Aramis Montes, at 10:39 EST , Service support , 08/11/19 08:48 CTA Chest W/WO Contrast [CT] Stat Laboratory Results 08/11/19 08/11/19 08/11/19 08:50 08:50 08:50 WBC 6.9 RBC 4.59 Hgb 13.9 Hct 42.6 MCV 92.8 MCH 30.3 MCHC 32.6 RDW Std Deviation 45.1 H RDW Coeff of Brian 13.3 Plt Count 284 MPV 8.7 Immature Gran % (Auto) 0.100 Neut % (Auto) 56.7 Lymph % (Auto) 30.7 [place] % (Auto) 8.1 Eos % (Auto) 3.8 Baso % (Auto) 0.6 Absolute Neuts (auto) 3.9 Absolute Lymphs (auto) 2.12 Nucleated RBC % 0 Sodium 139 Potassium 3.7 Chloride 108 H Carbon Dioxide 27.0 Anion Gap 4 L BUN 14 Creatinine 0.84 Estim Creat Clear Calc 52.28 Est GFR (MDRD) Af Amer 86 Est GFR (MDRD) Non-Af 71 BUN/Creatinine Ratio 16.7 Glucose 103 Calcium 9.3 Troponin I < 0.015 B-Natriuretic Peptide 11.8 CTA of the chest reveals scarring of the lower lung cunningham. There is no evidence of pulmonary embolus. There is no infiltrate or effusion noted. Troponin and BNP were normal as well. Patient's heart score is 2. She was wanted to points because of her age. - EKG Initial EKG Interpretation: Sinus Rhythm - Normal sinus rhythm with a ventricular rate of 91. [place] interval is 142 ms. QRS duration 88 ms. QT duration 364 ms. [place] is normal. The EKG is normal. - Medical Decision Making History of unprovoked PE and failure on Xarelto with chief complaint of dyspnea left scapular pain like prior diagnosed pulmonary embolus will obtain CTA to evaluate for pulmonary embolus. Basic metabolic panel was obtained to assess renal function. CBC to assess H&H to evaluate for anemia. ED Disposition - Plan for ED Patient: Disposition: Home or Assisted Living Diagnosis: Dyspnea, Pain of left scapula Instructions: ED Dyspnea Referrals: Hawk Carbone MD [Primary Care Provider] - 1-2 Days if not improving
[2019-08-11 08:59] LABS: Absolute Lymphocyte Count 2.12 X10^3/uL (0.83-4.51); Absolute Neutrophil Count 3.9 X10^3/uL (2.0-7.7); Basophil# 0.04 X10^3/uL; Basophil% 0.6 % (0-1); Eosinophil# 0.26 X10^3/uL; Eosinophils% 3.8 % (0-5); Hematocrit 42.6 % (37-47); Hemoglobin 13.9 g/dL (12.0-15.0); Lymphocyte # 2.12 X10^3/ul (4.0); Lymphocyte % 30.7 % (19-41); Mean Corp Hgb Conc 32.6 g/dL (32-36); Mean Corpuscular Hgb 30.3 pg (27.0-32.0); Mean Corpuscular Volume 92.8 fL (81-99); Mean Platelet Vol. 8.7 fl (6.2-12.0); Monocyte# 0.56 X10^3/uL; Monocyte% 8.1 % (0-10); NRBC Flagged by Analyzer 0 % (0-5); Neutrophil # 3.92 X10^3/uL (2.7-7.7); Neutrophil % 56.7 % (47-70); Platelet Count 284 K/mm3 (150-450); RBC Distribution Width CV 13.3 % (11.6-14.6); RBC Distribution Width SD 45.1 fl (35.1-43.9); Red Blood Count 4.59 M/mm3 (4.2-5.4); White Blood Count 6.9 K/mm3 (4.4-11.0)
[2019-08-11 09:16] LABS: Anion Gap 4 (5-15); BUN 14 mg/dL (7-18); BUN/Creat Ratio 16.7 RATIO (10-20); Calcium,Total 9.3 mg/dL (8.5-10.1); Chloride 108 mmol/L (98-107); Creatinine, Serum 0.84 mg/dL (0.55-1.02); EST Glomerular Filtration Rate 71 mL/min (>60); Est Glom Filt Rate - Afr Amer 86 mL/min (>60); Estimated Creatinine Clearance 52.28 ml/min; Glucose 103 mg/dL (74-106); Potassium 3.7 mmol/L (3.5-5.1); Sodium Level 139 mmol/L (136-145)
[2019-08-11 09:49] LABS: BNP,B-Type NATRIURETIC PEPTIDE 11.8 pg/mL (0-100)
[2019-08-11 10:20] VITALS: BP 132/68; PULSE 82; O2SAT 98
[2019-08-11 11:08] VITALS: BP 140/64
== END 2019-08-11 11:09 | disposition home or self-care (01) ==
PROVIDERS: Emergency Provider Emergency Medicine; PCP Family Medicine
DX: M25.512 Pain in left shoulder (principal); R06.00 Dyspnea, unspecified; Z86.711 Personal history of pulmonary embolism; Z79.02 Long term (current) use of antithrombotics/antiplatelets
CPT/HCPCS: 71275; 80048; 83880; 84484; 85025; 93005; 96360; 96361; 99284; J7030; Q9967; A4216

== ENCOUNTER 2021-08-11 15:12 | Outpatient (CLI) | payer MEDICARE, SELFPAY ==
[2021-08-11 15:25] LABS: Mucous, Urine 0 SEEN /hpf (<or=2+)
[2021-08-11 16:11] LABS: Color, Urine Yellow (Yellow); Glucose, Dipstick Normal (Normal); Ketone-Dipstick Negative (Negative); Leukocyte Esterase-Dipstick 500 /ul (Negative); Nitrite-Dipstick Negative (Negative); Occult Blood-Urine 250 /ul (Negative); Protein-Dipstick 30 mg/dl (Negative); Specific Gravity, Urine 1.015 (1.002-1.030); Urine Bilirubin Dipstick Negative (Negative); Urine Clarity Cloudy (Clear); Urine Urobilinogen Normal (Normal)
[2021-08-11 16:19] LABS: Amorphous Sediment 1+ URATE; Bacteria 1+ /hpf (None Seen); Red Blood Cells-Urine 50-100 SEEN /hpf (0-5); Squamous Epithelial Cells - UA 0-5 SEEN /hpf (5-10); White Blood Cells >100 SEEN /hpf (0-5)
== END 2021-08-11 23:59 | disposition short-term general hospital (02) ==
LOC: LAB 15:14
PROVIDERS: PCP Family Medicine; Visit Provider Obstetrics & Gynecology
DX: N39.0 Urinary tract infection, site not specified (principal)
CPT/HCPCS: 81001; 87077; 87086; 87088; 87186

== ENCOUNTER 2021-08-31 14:41 | Outpatient (CLI) | payer MEDICARE, SELFPAY ==
[2021-08-31 14:46] LABS: Bacteria 0 SEEN /hpf (None Seen); Mucous, Urine 0 SEEN /hpf (<or=2+); Red Blood Cells-Urine 0 SEEN /hpf (0-5); Squamous Epithelial Cells - UA 0 SEEN /hpf (5-10); White Blood Cells 0 SEEN /hpf (0-5)
[2021-08-31 15:36] LABS: Color, Urine Yellow (Yellow); Glucose, Dipstick Normal (Normal); Ketone-Dipstick Negative (Negative); Leukocyte Esterase-Dipstick 500 /ul (Negative); Nitrite-Dipstick Negative (Negative); Occult Blood-Urine 150 /ul (Negative); Protein-Dipstick Negative (Negative); Urine Bilirubin Dipstick Negative (Negative); Urine Clarity Clear (Clear); Urine Urobilinogen Normal (Normal)
== END 2021-08-31 23:59 | disposition home or self-care (01) ==
LOC: LAB 14:42
PROVIDERS: PCP Family Medicine; Visit Provider Obstetrics & Gynecology
DX: N39.0 Urinary tract infection, site not specified (principal)
CPT/HCPCS: 36415; 81001; 87077; 87086; 87088; 87186

== ENCOUNTER 2021-10-28 12:37 | Outpatient (CLI) | payer MEDICARE, SELFPAY ==
[2021-10-28 12:46] LABS: Bacteria 0 SEEN /hpf (None Seen); Mucous, Urine 0 SEEN /hpf (<or=2+); Squamous Epithelial Cells - UA 0 SEEN /hpf (5-10)
[2021-10-28 13:25] LABS: Color, Urine Yellow (Yellow); Glucose, Dipstick Normal (Normal); Ketone-Dipstick Negative (Negative); Leukocyte Esterase-Dipstick 500 /ul (Negative); Nitrite-Dipstick Negative (Negative); Occult Blood-Urine 250 /ul (Negative); Protein-Dipstick 30 mg/dl (Negative); Urine Bilirubin Dipstick Negative (Negative); Urine Clarity Clear (Clear); Urine Urobilinogen Normal (Normal)
[2021-10-28 13:28] LABS: Red Blood Cells-Urine 25-50 SEEN /hpf (0-5); White Blood Cells 10-25 SEEN /hpf (0-5)
== END 2021-10-28 23:59 | disposition home or self-care (01) ==
LOC: LAB 12:37
PROVIDERS: PCP Family Medicine; Referring Provider Obstetrics & Gynecology; Visit Provider Obstetrics & Gynecology
DX: N39.0 Urinary tract infection, site not specified (principal)
CPT/HCPCS: 81001; 87086; 87088

== ENCOUNTER 2021-11-01 06:04 | Emergency (ER) | payer MEDICARE, SELFPAY ==
[2021-11-01 06:08] VITALS: BP 156/60; PULSE 94; RESP 15; TEMP 36.4; O2SAT 97; BMI 32.5
--- NOTE | 2021-11-01 06:35 | CT_ITS ---
STUDY: CT ABDOMEN AND PELVIS WITHOUT CONTRAST REASON FOR EXAM: Female, 76 years old. Right flank pain RADIATION DOSAGE (If Supplied By Facility): CTDIvol = ( 12 ) mGy, DLP = ( 567 ) mGycm TECHNIQUE: Transaxial images were obtained from the dome of the diaphragm to the symphysis pubis without oral contrast, and without intravenous contrast. Sagittal and coronal images were reconstructed. Individualized dose optimization techniques were used for this CT. COMPARISON: 11/14/18 FINDINGS: Evaluation of the abdominal viscera is limited in the absence of intravenous contrast. There is atelectasis at the lung bases. The visualized portions of the heart and pericardium are within normal limits. There are no calcified gallstones present. The liver demonstrates an unremarkable unenhanced appearance. The spleen is normal in size. The pancreas demonstrates an unremarkable unenhanced appearance. The adrenal glands are within normal limits. There are no renal or ureteral stones. There is no hydronephrosis. There are stable simple cysts in the left kidney. Normal visualized stomach. There is no bowel obstruction or inflammation. The appendix is visualized and appears normal. The aorta is normal in caliber. There is no abdominal or pelvic free air, free fluid, fluid collection or lymphadenopathy. There are no destructive osseous lesions. CT/Abdomen/Pelvis without Cont IMPRESSION: No acute abdominal or pelvic pathology demonstrated on this noncontrast CT. Electronically Signed: Alejo Fang MD at 7:56 EDT ,
[2021-11-01 07:01] LABS: Mucous, Urine 0 SEEN /hpf (<or=2+); Red Blood Cells-Urine 0 SEEN /hpf (0-5)
[2021-11-01 07:04] LABS: Color, Urine Yellow (Yellow); Glucose, Dipstick Normal (Normal); Ketone-Dipstick Negative (Negative); Leukocyte Esterase-Dipstick 100 /ul (Negative); Nitrite-Dipstick Negative (Negative); Occult Blood-Urine 50 /ul (Negative); Protein-Dipstick Negative (Negative); Specific Gravity, Urine 1.005 (1.002-1.030); Urine Bilirubin Dipstick Negative (Negative); Urine Clarity Clear (Clear); Urine Urobilinogen Normal (Normal)
[2021-11-01 07:07] LABS: Absolute Lymphocyte Count 2.05 X10^3/uL (0.83-4.51); Absolute Neutrophil Count 3.3 X10^3/uL (2.0-7.7); Basophil# 0.05 X10^3/uL; Basophil% 0.8 % (0-1); Eosinophil# 0.23 X10^3/uL; Eosinophils% 3.6 % (0-5); Hematocrit 43.7 % (37-47); Hemoglobin 14.3 g/dL (12.0-15.0); Lymphocyte # 2.05 X10^3/ul (0.83-4.51); Lymphocyte % 32.5 % (19-41); Mean Corp Hgb Conc 32.7 g/dL (32-36); Mean Corpuscular Hgb 30.8 pg (27.0-32.0); Mean Platelet Vol. 10.7 fl (6.2-12.0); Monocyte# 0.63 X10^3/uL; NRBC Flagged by Analyzer 0 % (0-5); Neutrophil # 3.33 X10^3/uL (2.7-7.7); Neutrophil % 52.8 % (47-70); POSITIVE COUNT YES; RBC Distribution Width CV 13.2 % (11.6-14.6); RBC Distribution Width SD 45.3 fl (35.1-43.9); Red Blood Count 4.65 M/mm3 (4.2-5.4); White Blood Count 6.3 K/mm3 (4.4-11.0)
[2021-11-01 07:11] LABS: Bacteria RARE /hpf (None Seen); Squamous Epithelial Cells - UA 0-5 SEEN /hpf (5-10); White Blood Cells 0-5 SEEN /hpf (0-5)
[2021-11-01 07:13] LABS: Differential Indicated SCAN CRITERIA MET
[2021-11-01 07:19] LABS: Anion Gap 5 (5-15); BUN 13 mg/dL (7-18); BUN/Creat Ratio 16.6 RATIO (10-20); Calcium,Total 9.2 mg/dL (8.5-10.1); Chloride 103 mmol/L (98-107); Creatinine, Serum 0.78 mg/dL (0.55-1.02); EST Glomerular Filtration Rate 76 mL/min (>60); Est Glom Filt Rate - Afr Amer 92 mL/min (>60); Estimated Creatinine Clearance 42.62 ml/min; Glucose 103 mg/dL (74-106); Potassium 4.5 mmol/L (3.5-5.1); Sodium Level 135 mmol/L (136-145)
--- NOTE | 2021-11-01 07:23 | ED.RN ---
0650 PT REFUSED TO GET IN A GOWN,WENT TO START HER IV AND ASKED HER IF SHE WAS ON BLOOD THINNER AND SHE DENIED. ATTEMPT TO START IV IN [facility] AND WAS ABLE TO DRAW BLOOD,BUT IV WOULD NOT ADVANCE. PLACED DRSG OVER THE IV SITE AND PT BENT HER ARM.PT THEN SAID SHE IS ON BLOOD THINNER. NOTICE BLOOD ON PT'S SHIRT,EMPATHY GIVEN AND ASKED PT TO PLEASE CHANGE IN TO A GOWN. RE-DRESSED THE SITE.PT REFUSED ANOTHER IV. MADE AWARE. PT STATED SHE WOULD PERMIT BLOOD DRAW,BUT NO IV.PT REFUSED ANY BLOOD DRAW ATTEMPT IN HER HANDS OR R ARM. WAS ABLE TO GET FINIAL LAB SPECIMEN IN [facility]..
--- NOTE | 2021-11-01 07:56 | EDS_ITS ---
HPI History of Present Illness Chief Complaint: Complaint Narrative Narrative: Patient is a 76-year-old female who states that over the past few weeks she has noted intermittent blood in her urine. She states she has been tested for infection recently and this was negative. She reports she will have intermittent pain mainly in the right side as well and concerned that she may have a kidney stone that is causing her symptoms and secondary to this presents for evaluation. PFSH PFSH Home Medications cholecalciferol (vitamin D3) [Vitamin D3] 2,000 unit PO DAILY 10/14/18 [History Last Taken 10/14/18] apixaban [Eliquis] 5 mg PO BID 11/01/21 [History Last Taken Unknown] Allergy/AdvReac Type Severity Reaction Status Date / Time chlordiazepoxide Allergy Unknown Verified 11/01/21 06:06 [From Librax (with clidinium)] ciprofloxacin [From Cipro] Allergy Nausea/Vom/ Verified 11/01/21 06:06 Diarrhea clidinium Allergy Unknown Verified 11/01/21 06:06 [From Librax (with clidinium)] codeine Allergy Unknown Verified 11/01/21 06:06 dicyclomine [From Bentyl] Allergy Unknown Verified 11/01/21 06:06 nickel Allergy Unknown Verified 11/01/21 06:06 gluten AdvReac Nausea/Vom/ Verified 11/01/21 06:06 Diarrhea levofloxacin [From Levaquin] AdvReac Nausea/Vom/ Verified 11/01/21 06:06 Diarrhea sulfamethoxazole AdvReac Nausea/Vom/ Verified 11/01/21 06:06 [From Bactrim] Diarrhea Social History Smoking Status: Never smoker ROS ROS ED Constitutional Constitutional ED: Denies chills or fever(s) ENT ENT ED: Denies sore throat Cardiovascular Cardiovascular: Denies chest pain Respiratory/Chest Respiratory/Chest: Denies cough or dyspnea Gastrointestinal Gastrointestinal: Reports abdominal pain; Denies diarrhea, nausea or vomiting Genitourinary Genitourinary ED: Reports hematuria; Denies dysuria Musculoskeletal Musculoskeletal: Reports back pain; Denies myalgias Integumentary Denies rash Neurologic Neurologic: Denies headache(s) Hematologic/Lymphatic Hematologic/Lymphatic: Reports easy bleeding and easy bruising EXAM Physical Exam Const Vital Signs: 11/01/21 06:08 Temperature 97.6 F L Temperature Source Oral Pulse Rate 94 Respiratory Rate 15 Blood Pressure 156/60 H Blood Pressure Mean 92 Pulse Ox 97 Oxygen Delivery Method Room Air Positive well nourished and well developed General Appearance ED: well developed Eyes PERRL and EOMs intact bilaterally Neck supple Resp normal respiratory effort and clear to auscultation bilaterally Cardio regular rate and regular rhythm GI normal to inspection, nondistended, normoactive bowel sounds, non-tender, non- distended and no masses GI Narrative: No voluntary guarding or rigidity no pulsatile mass Auscultation: normoactive bowel sounds Palpation: soft Back/Spine no CVA tenderness Extremity normal to inspection Neuro oriented x3 and CN's II-XII intact bilaterally Sensorium / Orientation: alert Motor Exam: strength 5/5 throughout Psych mental status grossly normal Skin no rashes or lesions noted MDM MDM MDM Narrative Medical decision making narrative: Patient presented to the ER with stable vitals and a soft nonsurgical abdomen. With her intermittent hematuria as well as sort of right sided lower abdominal pain there is concern she has a atypical presentation for kidney stone or some type of bladder tumor or cyst as the cause of her symptoms. Basic blood work was obtained and shows a stable H&H as well as normal kidney function. Urine does show blood consistent with her history but no sign of infection. CT scan did not reveal any type of bladder mass or kidney stone or signs of intestinal pathology. Therefore at this time with overall negative work-up there is no need for further inpatient treatment and patient can follow-up with her doctor on an outpatient basis to discuss other studies such as ultrasound or cystoscopy to further assess her symptoms Lab Data Attestation: I reviewed the patient's lab results. Labs: Laboratory Results - last 24 hr 11/01/21 11/01/21 11/01/21 06:25 06:58 06:58 WBC 6.3 RBC 4.65 Hgb 14.3 Hct 43.7 MCV 94.0 MCH 30.8 MCHC 32.7 RDW Std Deviation 45.3 H RDW Coeff of Brian 13.2 Plt Count 136 L MPV 10.7 Immature Gran % (Auto) 0.300 Neut % (Auto) 52.8 Lymph % (Auto) 32.5 [place] % (Auto) 10.0 Eos % (Auto) 3.6 Baso % (Auto) 0.8 Absolute Neuts (auto) 3.3 Absolute Lymphs (auto) 2.05 Nucleated RBC % 0 PT INR APTT Sodium 135 L Potassium 4.5 Chloride 103 Carbon Dioxide 27.0 Anion Gap 5 BUN 13 Creatinine 0.78 Estim Creat Clear Calc 42.62 Est GFR (MDRD) Af Amer 92 Est GFR (MDRD) Non-Af 76 BUN/Creatinine Ratio 16.6 Glucose 103 Calcium 9.2 Urine Color Yellow Urine Clarity Clear Urine pH 7.0 Ur Specific [place] 1.005 Urine Protein Negative Urine Glucose (UA) Normal Urine Ketones Negative Urine Occult Blood 50 H Urine Nitrite Negative Urine Bilirubin Negative Urine Urobilinogen Normal Ur Leukocyte Esterase 100 H Urine RBC 0 SEEN Urine WBC 0-5 SEEN Ur Squamous Epith Cells 0-5 SEEN Urine Bacteria RARE Urine Mucus 0 SEEN 11/01/21 07:20 WBC RBC Hgb Hct MCV MCH MCHC RDW Std Deviation RDW Coeff of Brian Plt Count MPV Immature Gran % (Auto) Neut % (Auto) Lymph % (Auto) [place] % (Auto) Eos % (Auto) Baso % (Auto) Absolute Neuts (auto) Absolute Lymphs (auto) Nucleated RBC % PT 13.4 INR 1.1 APTT 28.7 Sodium Potassium Chloride Carbon Dioxide Anion Gap BUN Creatinine Estim Creat Clear Calc Est GFR (MDRD) Af Amer Est GFR (MDRD) Non-Af BUN/Creatinine Ratio Glucose Calcium Urine Color Urine Clarity Urine pH Ur Specific [place] Urine Protein Urine Glucose (UA) Urine Ketones Urine Occult Blood Urine Nitrite Urine Bilirubin Urine Urobilinogen Ur Leukocyte Esterase Urine RBC Urine WBC Ur Squamous Epith Cells Urine Bacteria Urine Mucus Radiography Diagnostic Testing: Clinical Impression(s) from Imaging Studies Abdomen/Pelvis CT 11/01/21 06:35 IMPRESSION: No acute abdominal or pelvic pathology demonstrated on this noncontrast CT. Electronically Signed: Alejo Fang MD at 7:56 EDT , Discharge Plan Triage Chief Complaint: Complaint ED Provider: Jp Vogt Dx/Rx/DC Orders Clinical Impression: Hematuria, Current use of intermodal dispatcher anticoagulation Instructions: ED Hematuria Prescriptions: No Action cholecalciferol (vitamin D3) [Vitamin D3] 2,000 UNIT capsule 2,000 unit PO DAILY RF: 0 Eliquis 5 mg tablet 5 mg PO BID RF: 0 Primary Care Provider: Myke Ruiz Referrals: Myke Ruiz MD [Primary Care Provider] - Radhika Fortune MD [STAFF PHYSICIAN] - 3-5 Days if not improving Disposition Disposition: Home, Self Care
[2021-11-01 08:03] LABS: International Normalized Ratio 1.1; Prothrombin Time (Protime)PT. 13.4 SECONDS (11.7-14.9)
[2021-11-01 08:04] LABS: Partial Thromboplast Time 28.7 Seconds (24.1-36.2)
[2021-11-01 08:09] LABS: Platelet Estimate SLT DEC (ADEQ)
[2021-11-01 08:16] VITALS: BP 124/79; PULSE 68; RESP 15; O2SAT 97
== END 2021-11-01 08:17 | disposition home or self-care (01) ==
PROVIDERS: Emergency Provider Emergency Medicine; PCP Family Medicine; Visit Provider Emergency Medicine
DX: R31.9 Hematuria, unspecified (principal); Z79.01 Long term (current) use of anticoagulants; R10.31 Right lower quadrant pain
CPT/HCPCS: 36415; 74176; 80048; 81001; 85025; 85610; 85730; 99282

== ENCOUNTER → 2022-03-10 | Outpatient (CLI) | payer MEDICARE, SELFPAY ==
[2022-03-10 10:30] LABS: Mucous, Urine 0 SEEN /hpf (<or=2+)
[2022-03-10 11:06] LABS: Color, Urine Straw (Yellow); Glucose, Dipstick Normal (Normal); Ketone-Dipstick Negative (Negative); Leukocyte Esterase-Dipstick 500 /ul (Negative); Nitrite-Dipstick Negative (Negative); Occult Blood-Urine 250 /ul (Negative); Protein-Dipstick 30 mg/dl (Negative); Urine Bilirubin Dipstick Negative (Negative); Urine Clarity Cloudy (Clear); Urine Urobilinogen Normal (Normal)
[2022-03-10 11:19] LABS: White Blood Cells 50-100 SEEN /hpf (0-5)
[2022-03-10 11:20] LABS: Red Blood Cells-Urine 5-10 SEEN /hpf (0-5)
[2022-03-10 11:21] LABS: Squamous Epithelial Cells - UA 0-5 SEEN /hpf (5-10)
[2022-03-10 11:22] LABS: Bacteria 1+ /hpf (None Seen)
== END | disposition home or self-care (01) ==
LOC: LAB 10:26
PROVIDERS: PCP Family Medicine; Referring Provider Obstetrics & Gynecology; Visit Provider Obstetrics & Gynecology
DX: N39.0 Urinary tract infection, site not specified (principal)
CPT/HCPCS: 81001; 87077; 87086; 87088; 87186

== ENCOUNTER → 2022-09-20 | Outpatient (CLI) | payer MEDICARE, SELFPAY ==
[2022-09-20 10:42] LABS: Mucous, Urine 0 SEEN /hpf (<or=2+)
[2022-09-20 11:24] LABS: Color, Urine Yellow (Yellow); Glucose, Dipstick Normal (Normal); Ketone-Dipstick Negative (Negative); Leukocyte Esterase-Dipstick 500 /ul (Negative); Nitrite-Dipstick Negative (Negative); Occult Blood-Urine 150 /ul (Negative); Protein-Dipstick 15 mg/dl (Negative); Specific Gravity, Urine 1.005 (1.002-1.030); Urine Bilirubin Dipstick Negative (Negative); Urine Clarity Sl. Cloudy (Clear); Urine Urobilinogen Normal (Normal)
[2022-09-20 11:29] LABS: Bacteria 1+ /hpf (None Seen); Red Blood Cells-Urine 10-25 SEEN /hpf (0-5); Squamous Epithelial Cells - UA 0-5 SEEN /hpf (5-10); White Blood Cells 25-50 SEEN /hpf (0-5)
== END | disposition home or self-care (01) ==
LOC: LAB 10:40
PROVIDERS: PCP Family Medicine; Referring Provider Obstetrics & Gynecology; Visit Provider Obstetrics & Gynecology
DX: N39.0 Urinary tract infection, site not specified (principal)
CPT/HCPCS: 81001; 87086; 87088